=== PATIENT | male | born 1940 | race Caucasian/White ===

== ENCOUNTER 2017-08-07 06:01 | Inpatient (IN) | payer OTHER, BC ==
[2017-07-20 12:26] VITALS: Ht 182.9 cm; Wt 137.9 kg
--- NOTE | 2017-07-20 13:09 | PAT Medication Instructions ---
Service Date Jul 20, 2017. Current Home Medication List Acetaminophen (Tylenol), 1,000 MG PO BID Albuterol Hfa (Ventolin Hfa), 2-4 PUFFS INH Q6H PRN for SOB/Wheezing Albuterol Sulfate (Proair Respiclick), 2 PUFF INH BID PRN for SOB/Wheezing Allopurinol (Zyloprim), 100 MG PO QAM Amoxicillin (Amoxicillin), 4 CAP PO DAILY PRN for PRE DENTAL Amoxicillin & Pot Clavulanate (Amoxicillin/Clavulanate P), 1 TAB PO BID Aspirin (Aspirin Ec), 81 MG PO QPM Atorvastatin (Lipitor), 1 TAB PO HS Fluticasone Prop/Salmeterol (Advair Diskus 250/50 60 Dose), 2 PUFFS INH BID Fluticasone Propionate (Nasal) (Allergy Nasal [place] 24 Ho), 2 SPRAYS NA DAILY PRN for Nasal Congestion Glimepiride (Glimepiride), 1 TAB PO QAM Hydrocortisone (Hydrocortisone), 1 APPLN TOP DAILY PRN for Affected Skin Folds Icosapent Ethyl (Vascepa), 2 TAB PO BID Isosorbide Mononitrate Ext Rel (Imdur Ext Rel), 60 MG PO QAM Lorazepam (Ativan), 0.5 MG PO Q6H PRN for Anxiety and/or Sedation Metformin Hcl Er (Glucophage Er), 1 TAB PO QPM Metoclopramide (Reglan), 10 MG PO TID Metoprolol Succinate (Toprol Xl), 50 MG PO BID Mirabegron (Myrbetriq Er), 25 MG PO QAM Nitroglycerin (Nitrostat), 0.4 MG UT PRN PRN for chest PAIN Oxybutynin Chloride (Ditropan), 5 MG PO QAM Oxycodone/Acetaminophen 5MG/325MG (Percocet 5MG/325MG), 1 TABLET PO Q4H PRN for Pain Pantoprazole (Protonix), 40 MG PO QAM Sertraline (Zoloft), 50 MG PO QPM Sucralfate (Sucralfate), 1 GM PO QID Tamsulosin Hcl (Flomax), 0.4 MG PO QPM Warfarin Sod (Jantoven), 10 MG PO QAM Medication Instructions For Your Scheduled Surgery Amoxicillin (Amoxicillin), 4 CAP PO DAILY PRN for PRE DENTAL - Continue as directed: Aspirin (Aspirin Ec), 81 MG PO QPM Amoxicillin & Pot Clavulanate (Amoxicillin/Clavulanate P), 1 TAB PO BID - Check with surgeon and prescribing physician for instructions: Warfarin Sod (Jantoven), 10 MG PO QAM - Hold the following medications 2 weeks prior to surgery: Icosapent Ethyl (Vascepa), 2 TAB PO BID - Hold the following medications 24 hours prior to surgery: Hydrocortisone (Hydrocortisone), 1 APPLN TOP DAILY PRN for Affected Skin Folds - Hold the following medications 48 hours prior to surgery: Metformin Hcl Er (Glucophage Er), 1 TAB PO QPM - Hold the following medications the morning of surgery: Glimepiride (Glimepiride), 1 TAB PO QAM Metoclopramide (Reglan), 10 MG PO TID Mirabegron (Myrbetriq Er), 25 MG PO QAM Oxybutynin Chloride (Ditropan), 5 MG PO QAM Sucralfate (Sucralfate), 1 GM PO QID - Take the following medications the morning of surgery with a sip of water: Pantoprazole (Protonix), 40 MG PO QAM Oxycodone/Acetaminophen 5MG/325MG (Percocet 5MG/325MG), 1 TABLET PO Q4H PRN for Pain (okay to take up to 4 hours prior to surgery if needed) Nitroglycerin (Nitrostat), 0.4 MG UT PRN PRN for chest PAIN (if needed) Metoprolol Succinate (Toprol Xl), 50 MG PO BID Lorazepam (Ativan), 0.5 MG PO Q6H PRN for Anxiety and/or Sedation (if needed) Isosorbide Mononitrate Ext Rel (Imdur Ext Rel), 60 MG PO QAM Fluticasone Prop/Salmeterol (Advair Diskus 250/50 60 Dose), 2 PUFFS INH BID Fluticasone Propionate (Nasal) (Allergy Nasal [place] 24 Ho), 2 SPRAYS NA DAILY PRN for Nasal Congestion (if needed) Allopurinol (Zyloprim), 100 MG PO QAM Albuterol Hfa (Ventolin Hfa), 2-4 PUFFS INH Q6H PRN for SOB/Wheezing (if needed) Albuterol Sulfate (Proair Respiclick), 2 PUFF INH BID PRN for SOB/Wheezing ( if needed) Acetaminophen (Tylenol), 1,000 MG PO BID (okay to take up to 4 hours prior to surgery if needed) If you have any questions please call us at [phone] or [phone] or [phone]
[2017-07-20 14:24] LABS: BASO % 0.3 %; BASO ABS # 0.02 K/uL (0-0.2); EOS % 2.9 %; HEMATOCRIT 39.6 % (42-52); HEMOGLOBIN 13.5 g/dL (14.0-18.0); IG# 0.03 K/uL (0.00-0.02); LYMPH % 19.5 %; LYMPH ABS # 1.33 K/uL (1.2-3.4); MEAN CELL VOLUME 88.8 fL (80-100); MEAN CORPUSCULAR HEMOGLOBIN 30.3 pg (25-34); MEAN CORPUSCULAR HGB CONC 34.1 g/dl (32-36); MEAN PLATELET VOLUME 11.3 fL (7.4-10.4); MONO % 6.9 %; MONO ABS # 0.47 K/uL (0.11-0.59); NEUT ABS # 4.77 K/uL (1.4-6.5); PLATELET COUNT 164 K/uL (130-400); RED CELL DISTRIBUTION WIDTH CV 14.8 % (11.5-14.5); RED CELL DISTRIBUTION WIDTH SD 47.7 fL (36.4-46.3); WHITE BLOOD COUNT 6.82 K/uL (4.8-10.8)
[2017-07-20 14:32] LABS: CALCIUM 8.5 mg/dl (8.5-10.1); CREATININE 1.29 mg/dl (0.60-1.40); POTASSIUM 4.3 mmol/L (3.5-5.1)
[2017-08-07] VITALS (9 sets, daily range): BP systolic 103–167; BP diastolic 70–102; PULSE 70–98; TEMP 36.8–37.3; O2SAT 94–96
[~2017-08-07] VITALS: Ht 182.9 cm; Wt 137.9 kg
[~2017-08-07 06:01] MED LIST: ACET-1256 PO; ADVIN25/60 INH; ALBU18002 INH; ALLO100T PO; AMOX1TAB43 PO; AMX500 PO; ASPI81TA28 PO; ATOR-24 PO; CEFAZOLIN 3000MG IV PUSH 15 ML IV SCH; DTR/5 PO; FLUT50SP45; GLIM1TAB2 PO; HYDCR25 TOP; ICOS1CAP PO; ISOS60TA25 PO; LACTATED RINGER'S 1000ML 1,000 ML IV SCH; LORA-741 PO; METF500T5 PO; METO-157 PO; METO-217 PO; MIRA100T PO; NTRGSL/4 UT; OXYC-57 PO; PANT40TA PO; SERT50TA PO; SUCR1TAB PO; TAMS0.4C38 PO; VNTHFA/IN INH; WARF5TAB7 PO
[2017-08-07] MEDS ORDERED: FENTANYL CITRATE INJ 50 MCG/1 ML 2 ML VIAL ONE ×6 (06:38→10:59)
[2017-08-07] MEDS ORDERED: MIDAZOLAM HCL 1 MG/ML 2ML VIAL ONE (06:38)
[2017-08-07] MEDS ORDERED: ALBUMIN HUMAN 5% 12.5 GM/250 ML VIAL IV ONE ×2 (06:45→10:39)
[2017-08-07] MEDS ORDERED: BACITRACIN 50000 UNIT VIAL ONE (06:56)
[2017-08-07] MEDS ORDERED: BUPIVACAINE/EPINEPHRINE 0.5% MPF 1:200,000 30 ML VIAL ONE (06:56)
[2017-08-07] MEDS ORDERED: HYDROmorphone INJ 1 MG/ML SYR IV PRN (07:00)
[2017-08-07] MEDS ORDERED: EpHEDrine SULFATE INJ 50 MG/ML AMP IV PRN (07:00)
[2017-08-07] MEDS ORDERED: ONDANSETRON INJ 2 MG/ML 2 ML VIAL IV PRN (07:00)
[2017-08-07] MEDS ORDERED: FENTANYL CITRATE INJ 50 MCG/1 ML 2 ML VIAL IV PRN (07:00)
[2017-08-07] MEDS ORDERED: ATROPINE SULFATE 0.1 MG/ML 5ML SYR IV PRN (07:00)
[2017-08-07 07:18] LABS: PTT PATIENT 25.9 SECONDS (21.0-31.0)
--- NOTE | 2017-08-07 07:35 | History & Physical Bridge Note ---
H&P Re-Evaluation Bridge Note: I have examined the patient, reviewed the History & Physical and in the interval since the performance of the History & Physical I have noted the following changes of clinical significance: No changes noted
--- NOTE | 2017-08-07 07:37 | History and Physical ---
History & Physical Date Aug 07, 2017. Chief Complaint Back and leg pain History of Present Illness The patient is a 77 year old male with complaints of back and leg pain Additional History Hepatic Disease: No Endocrine Disorder: No Kidney Disease: No Hypertension: No Heart Disease: No Bleeding Tendencies: No Infectious Diseases: No Allergies Coded Allergies: Iodinated Diagnostic Agents (Verified Allergy, Intermediate, "CAT SCAN DYE ", 08/07/17) patient forgets - states was not in good shape after Lisinopril (Verified Allergy, Intermediate, patients states forgetd, ) Pregabalin (Verified Allergy, Intermediate, affected speech, 08/07/17) Home Medications Scheduled Acetaminophen (Tylenol), 1,000 MG PO BID Allopurinol (Zyloprim), 100 MG PO QAM Amoxicillin & Pot Clavulanate (Amoxicillin/Clavulanate P), 1 TAB PO BID Aspirin (Aspirin Ec), 81 MG PO QPM Atorvastatin (Lipitor), 1 TAB PO HS Fluticasone Prop/Salmeterol (Advair Diskus 250/50 60 Dose), 2 PUFFS INH BID Glimepiride (Glimepiride), 1 TAB PO QAM Icosapent Ethyl (Vascepa), 2 TAB PO BID Isosorbide Mononitrate Ext Rel (Imdur Ext Rel), 60 MG PO QAM Metformin Hcl Er (Glucophage Er), 1 TAB PO QPM Metoclopramide (Reglan), 10 MG PO TID Metoprolol Succinate (Toprol Xl), 50 MG PO BID Mirabegron (Myrbetriq Er), 25 MG PO QAM Oxybutynin Chloride (Ditropan), 5 MG PO QAM Pantoprazole (Protonix), 40 MG PO QAM Sertraline (Zoloft), 50 MG PO QPM Sucralfate (Sucralfate), 1 GM PO QID Tamsulosin Hcl (Flomax), 0.4 MG PO QPM Warfarin Sod (Jantoven), 10 MG PO QAM Scheduled PRN Albuterol Hfa (Ventolin Hfa), 2-4 PUFFS INH Q6H PRN for SOB/Wheezing Albuterol Sulfate (Proair Respiclick), 2 PUFF INH BID PRN for SOB/Wheezing Amoxicillin (Amoxicillin), 4 CAP PO DAILY PRN for PRE DENTAL Fluticasone Propionate (Nasal) (Allergy Nasal [place] 24 Ho), 2 SPRAYS NA DAILY PRN for Nasal Congestion Hydrocortisone (Hydrocortisone), 1 APPLN TOP DAILY PRN for Affected Skin Folds Lorazepam (Ativan), 0.5 MG PO Q6H PRN for Anxiety and/or Sedation Nitroglycerin (Nitrostat), 0.4 MG UT PRN PRN for chest PAIN Oxycodone/Acetaminophen 5MG/325MG (Percocet 5MG/325MG), 1 TABLET PO Q4H PRN for Pain Physical Examination Skin: warm/dry, no rash Eyes: normal inspection, EOMI, sclerae normal ENT: normal ENT inspection, pharynx normal Head: normocephalic, atraumatic Neck: supple, no adenopathy, trachea midline Respiratory/Chest: lungs clear, normal breath sounds, no respiratory distress Cardiovascular: regular rate, rhythm, no edema, no murmur Abdomen / GI: normal bowel sounds, non tender Back: normal inspection Extremities: normal inspection, normal range of motion Neurologic/Psych: no motor/sensory deficits, alert, normal reflexes, oriented x 3 Diagnosis Lumbar spinal stenosis Plan of Treatment L2 to S1 decompression L2 to pelvis fusion with iliac bolts
[2017-08-07] MEDS ORDERED: HYDROmorphone INJ 2 MG/ML SYR/VIAL ONE ×3 (08:10→11:13)
[2017-08-07] MEDS ORDERED: THROMBIN FOR SOLN 20000 UNIT KIT ONE (08:10)
[2017-08-07] MEDS ORDERED: PHENYLEPHRINE HCL INJ 10 MG/ML VIAL ONE (10:06)
[2017-08-07] MEDS ORDERED: DEXAMETHASONE SOD INJ 4 MG/ML VIAL ONE (10:06)
[2017-08-07] MEDS ORDERED: ONDANSETRON INJ 2 MG/ML 2 ML VIAL ONE (10:06)
[2017-08-07] MEDS ORDERED: LIDOCAINE HCL 2% 2 ML VIAL (20MG/ML) ONE (10:06)
[2017-08-07] MEDS ORDERED: PHENYLEPHRINE 100MCG/ML 5ML SYR ONE (10:06)
[2017-08-07] MEDS ORDERED: PROPOFOL IV EMULSION 10 MG/ML 20 ML VIAL IV ONE (10:06)
[2017-08-07] MEDS ORDERED: FLOSEAL HEMOSTATIC MATRIX 10ML TOP ONE (11:03)
--- NOTE | 2017-08-07 11:07 | [facility] Operative Report ---
Operative Report Operative Date Aug 07, 2017. Pre-Operative Diagnosis Lumbar spinal stenosis Post-Operative Diagnosis Lumbar spinal stenosis Procedure(s) Performed #1 lumbar decompression medial facetectomies foraminotomies L2 3 L3 4 L4 5 L5-S1. #2 posterior spinal fusion L2 3 L3 4 L4 5 and L5-S1. #3 bilateral SI joint effusions. #4 placement posterior segmental instrumentation L2 to S1 with bilateral iliac bolts. #5 interbody fusion L3 4. #6 placed a peek Cage 14 x 26 mm at L3 4. #7 placement of locally harvested morcellized autograft in the posterior lateral gutters. #8 placement she is going to sponge, master graft the posterior gutters and ostial amp and the bone graft the posterior gutters. Surgeon Dr. Oseas Lua [employer] Truck Driver Surgeon(s) Vernell Howe PA-C Estimated Blood Loss 825ml Findings Severe multilevel spinal stenosis with herniated nucleus pulposus L3 4 Specimens none per surgeon Description of Procedure Patient was met with preoperatively case discussed all questions addressed. After informed consent obtained patient was taken to the operative suite and underwent intubation and placed in a prone position on the Yoel table on top of the Juan frame. All bony prominences were well-padded eyes inspected to ensure no external pressure placed upon them. This point the lumbar spine was prepped and draped in the normal sterile fashion. Sharp dissection with the assistance of Bovie cautery was performed on to an exposing the lamina and transverse processes of L2-L3 L4-L5 and the bilateral sacral alar and SI joints. From a caudal to cephalad fashion complete laminectomy of L5 L4 L3 and L2 was performed addressing severe central lateral recess stenosis as well as disc herniation at L3 4 level. After complete decompression pedicle screws were placed in L2 L3 L4 L5-S1 as well as bilateral iliac bolts. The appropriate sized wilmer was contoured and locked into position. 2 transforaminal approach on the right complete laminectomy of L3 4 was performed which created to subcortical bleeding bone and a 14 x 26 mm peek cage filled with ostial bone graft In position. The rods were then locked in the final position. The transverse processes of L2-L3 L4-L5 and sacral alar and the bilateral SI joints were burred out to subcortical bleeding bone. Infuse collagen sponge master graft locally harvested morcellized autograft was placed. Cross-link locked into position. A 15 round GODFREY drain inserted. Incision was then closed with 1 Vicryl in the fascia 2-0 Vicryl subcutaneously 4-0 Monocryl for final skin closure Steri-Strips dressing was placed. Patient was taken to PACU in stable condition. Please note Vernell Dumont was present throughout the entire procedure involved in patient positioning complex portions of the surgery and final skin closure. I attest to the content of the Intraoperative Record and any orders documented therein. Any exceptions are noted below.
[2017-08-07] MEDS ORDERED: SODIUM CHLORIDE 0.9% 1000ML 1,000 ML IV SCH (11:08)
[2017-08-07] MEDS ORDERED: ROCURONIUM BROMIDE 10 MG/ML 5 ML VIAL IV ONE (11:09)
[2017-08-07] MEDS ORDERED: NEOSTIGMINE METHYLSULFATE 1 MG/ML 10ML VIAL ONE (11:13)
[2017-08-07] MEDS ORDERED: GLYCOPYRROLATE INJ 0.2 MG/ML VIAL ONE (11:13)
[2017-08-07] MEDS ORDERED: METOPROLOL TARTRATE 1 MG/ML VIAL ONE (11:13)
[2017-08-07] MEDS ORDERED: SOD PHOSPHATE/SOD BIPHOSPHATE ENEMA 132 ML BTL PR PRN (11:15)
[2017-08-07] MEDS ORDERED: DO NOT ADMINISTER FLU VACCINE PRN (11:15)
[2017-08-07] MEDS ORDERED: LORAZEPAM 0.5 MG TAB PO PRN (11:15)
[2017-08-07] MEDS ORDERED: FLUTICASONE PROPIONATE NA SPR 16 GM BTL PRN (11:15)
[2017-08-07] MEDS ORDERED: ALBUTEROL HFA 8 GM INHALER INH PRN (11:15)
[2017-08-07] MEDS ORDERED: hydrOXYzine HCL 25 MG TAB PO PRN (11:15)
[2017-08-07] MEDS ORDERED: FAMOTIDINE 20 MG TAB PO PRN (11:15)
[2017-08-07] MEDS ORDERED: METOCLOPRAMIDE HCL INJ 5 MG/ML 2 ML VIAL IV PRN (11:15)
[2017-08-07] MEDS ORDERED: DO NOT ADMINISTER PNEUMOCOCCAL VACCINE PRN (11:15)
[2017-08-07] MEDS ORDERED: ALUMINUM/MAGNESIUM SUSP 30 ML UDC PO PRN (11:15)
[2017-08-07] MEDS ORDERED: PROMETHAZINE HCL INJ 12.5 MG in SODIUM CHLORIDE 0.9% 50ML 50 ML IV PRN (11:15)
[2017-08-07] MEDS ORDERED: BISACODYL 10 MG SUPP PR PRN (11:15)
[2017-08-07] MEDS ORDERED: LORAZEPAM INJ 0.5 MG in SYRINGE 0 ML IV PRN (11:15)
[2017-08-07] MEDS ORDERED: MAGNESIUM HYDROXIDE SUSP 30 ML UDC PO PRN (11:15)
[2017-08-07] MEDS ORDERED: ACETAMINOPHEN IV 100 ML IV PRN (11:15)
[2017-08-07] MEDS ORDERED: CEFAZOLIN IV 3,000 MG in DEXTROSE 5% 50ML 50 ML IV SCH (11:15)
[2017-08-07] MEDS ORDERED: NALOXONE HCL 0.4 MG/1 ML VIAL/CARP IV PRN ×2 (11:15)
[2017-08-07] MEDS ORDERED: NITROGLYCERIN 0.4 MG SL PER TAB CHARGE UT PRN (11:15)
--- NOTE | 2017-08-07 11:17 | DIAGNOSTIC IMAGING REPORT ---
INTRAOPERATIVE RADIOGRAPHS CLINICAL HISTORY: L2-S1 spinal fusion with iliac bolts. Fluoroscopy time: 49 seconds. FINDINGS: 5 spot fluoroscopic views of the lumbar spine are obtained. There has been discectomy at L3-L4 with laminectomy and posterior fusion from L2 -S1. Iliac bolts are in place. Interpedicular screws are present at all levels. The orthopedic hardware appears intact. IMPRESSION: Intraoperative images from L2 -S1 spinal fusion as above. Electronically signed by: Ruben Ortega M.D. 08/07/2017 11:16 AM Dictated Date/Time: 08/07/2017 11:15 AM
[2017-08-07] MEDS ORDERED: HYDROmorphone HCL 0.5MG/ML 50 ML CASSETTE ONE (11:25)
[2017-08-07 11:37] LABS: HEMATOCRIT 33.9 % (42-52); HEMOGLOBIN 11.1 g/dL (14.0-18.0)
--- NOTE | 2017-08-07 12:09 | Anesthesiology Progress Note ---
Anesthesia Post Op Note Date & Time Aug 07, 2017 at 12:08 Vital Signs Pain Intensity: 0 Vital Signs Past 12 Hours Date Time Temp Pulse Resp B/P (MAP) Pulse Ox O2 Delivery O2 Flow Rate FiO2 08/07/17 12:05 36.4 81 25 157/88 95 Nasal Cannula 4 08/07/17 11:55 86 27 160/97 96 Nasal Cannula 4 08/07/17 11:45 86 26 175/101 98 Oxymask 10 08/07/17 11:35 93 23 183/110 98 Oxymask 10 08/07/17 11:29 36.6 70 16 169/99 98 Oxymask 10 08/07/17 06:34 37 98 20 167/97 94 Room Air Notes Mental Status: alert / awake / arousable, participated in evaluation Pt Amnestic to Procedure: Yes Nausea / Vomiting: adequately controlled Pain: adequately controlled Airway Patency, RR, SpO2: stable & adequate BP & HR: stable & adequate Hydration State: stable & adequate Anesthetic Complications: no major complications apparent Patient is able to move b/l lower extremities.
[2017-08-07] MEDS: HYDROmorphone HCL 0.5MG/ML 50 ML CASSETTE IV PRN ×3 (12:23→23:07)
[2017-08-07] MEDS: ONDANSETRON INJ 2 MG/ML 2 ML VIAL IV PRN (12:59)
[2017-08-07] MEDS ORDERED: GLUCOSE 40% GEL 15 GM TUBE PO PRN (13:15)
[2017-08-07] MEDS ORDERED: DEXTROSE 50% 50 ML SYR IV PRN (13:15)
[2017-08-07] MEDS ORDERED: GLUCAGON FOR INJ 1 MG VIAL SQ PRN (13:15)
[2017-08-07] MEDS ORDERED: GLUCOSE 10 TABS/TUBE PO PRN (13:15)
[2017-08-07] MEDS: SUCRALFATE 1 GM TAB PO SCH ×3 (14:29→21:29)
[2017-08-07] MEDS: METOCLOPRAMIDE HCL 10 MG TAB PO SCH ×2 (14:29→21:30)
[2017-08-07] MEDS: SODIUM CHLORIDE 0.9% 1000ML 1,000 ML IV SCH ×2 (14:30→21:27)
[2017-08-07] MEDS ORDERED: NURSING VERBAL MED ORDER ONE (15:30)
--- NOTE | 2017-08-07 15:42 | Medical Consult ---
Consultation Date of Consultation: Aug 07, 2017. Attending Physician: Oseas Lua D.O. Reason for Consultation: Post op medical management History of Present Illness This is a 77yo M with a PMH of CAD (s/p CABG x 3 in 2009), chronic diastolic HF , mild COPD, HTN, chronic A Fib (on coumadin), DM II, HLD, depression, lumbar radiculopathy and other medical problems listed below who is POD #0 s/p decompression fusion of L2-S1 by Dr. Lua. Doing well post-operatively Endorses 2/10 lower back pain at surgical site. Denies fever, chills, lightheadedness, confusion, headache, chest pain, palpitations, abd pain, nausea , vomiting, dysuria or LE swelling. Has a history of CAD s/p CABG in 2009. Takes aspirin daily but stopped 5 days pre-operatively. Also has h/o chronic A Fib for which he is on coumadin. Stopped 5 days ago pre-operatively. DM II is well controlled on metformin and glimepiride. Hgb a1c of 6.1 in Apr 2017. Past Medical/Surgical History Medical Problems: (1) Aortic valve stenosis Status: Chronic (2) BPH (benign prostatic hyperplasia) Status: Chronic (3) CAD (coronary artery disease) Permanent Comment: S/p CABG x 3 in 2009 Status: Chronic (4) Chronic atrial fibrillation Status: Chronic (5) CKD (chronic kidney disease), stage III Status: Chronic (6) COPD, mild Status: Chronic (7) Depression Status: Chronic (8) DM II (diabetes mellitus, type II), controlled Status: Chronic (9) HLD (hyperlipidemia) Status: Chronic (10) HTN (hypertension) Status: Chronic (11) Lumbar stenosis with neurogenic claudication Status: Chronic (12) ALYSSIA on CPAP Status: Chronic Family History FH: heart disease FH: thyroid disease Kidney disease Seizures Social History Smoking Status: Former Smoker Alcohol Use: none Marital Status: Housing Status: lives with significant other Occupation Status: retired Allergies Coded Allergies: Iodinated Diagnostic Agents (Verified Allergy, Intermediate, "CAT SCAN DYE ", 08/07/17) patient forgets - states was not in good shape after Lisinopril (Verified Allergy, Intermediate, patients states forgetd, ) Pregabalin (Verified Allergy, Intermediate, affected speech, 08/07/17) Home Medications Reported Home Medications Medications Dose Route/Sig Max Daily Dose Days Date Category Dose Instructions Ventolin Hfa (Albuterol) 200 Puffs/68437 Mcg Aers 2-4 Puffs INH Q6H PRN 07/20/17 Reported Glimepiride 1 Mg Tab 1 Tab PO QAM 30 07/20/17 Reported Imdur Ext Rel (Isosorbide Mononitrate) 60 Mg Ertab 60 Mg PO QAM 07/20/17 Reported Lipitor (Atorvastatin Calcium) 40 Mg Tab 1 Tab PO HS 90 07/20/17 Reported Percocet 5MG/325MG (Oxycodone/Acetaminophen) Tab 1 Tablet PO Q4H PRN 07/20/17 Reported PAIN Ativan (Lorazepam) 0.5 Mg Tab 0.5 Mg PO Q6H PRN 07/20/17 Reported Vascepa (Icosapent Ethyl) 1 Gm Cap 2 Tab PO BID 07/20/17 Reported Amoxicillin/Clavulanate P (Amoxicillin & Pot Clavulanate) 1 Tab Tab 1 Tab PO BID 10 07/20/17 Reported Glucophage Er (Metformin HCl) 500 Mg Tab 1 Tab PO QPM 90 07/20/17 Reported Tylenol (Acetaminophen) 500 Mg Tab 1,000 Mg PO BID 07/20/17 Reported Reglan (Metoclopramide HCl) 10 Mg Tab 10 Mg PO TID 07/20/17 Reported NAUSEA Advair Diskus 250/50 60 Dose (Fluticasone Prop/Salmeterol) 1 Ea Aerp 2 Puffs INH BID 90 07/20/17 Reported Jantoven (Warfarin Sodium) 5 Mg Tab 10 Mg PO QAM 07/20/17 Reported Toprol Xl (Metoprolol Succinate) 50 Mg Tabcr 50 Mg PO BID 07/20/17 Reported Flomax (Tamsulosin Hcl) 0.4 Mg Cap 0.4 Mg PO QPM 07/20/17 Reported Myrbetriq Er (Mirabegron) 25 Mg Tab 25 Mg PO QAM 07/20/17 Reported Amoxicillin 500 Mg Cap 4 Cap PO DAILY PRN 07/20/17 Reported Protonix (Pantoprazole Sodium) 40 Mg Tab 40 Mg PO QAM 07/20/17 Reported Allergy Nasal Minetto 24 Ho (Fluticasone Propionate (Nasal)) 50 Mcg/Act Spr 2 Sprays NA DAILY PRN 07/20/17 Reported Ditropan (Oxybutynin Chloride) 5 Mg Tab 5 Mg PO QAM 07/20/17 Reported Nitrostat (Nitroglycerin) 0.4 Mg Tab 0.4 Mg UT PRN PRN 07/20/17 Reported Sucralfate 1 Gm Tab 1 Gm PO QID 07/20/17 Reported Zoloft (Sertraline HCl) 50 Mg Tab 50 Mg PO QPM 07/20/17 Reported Zyloprim (Allopurinol) 100 Mg Tab 100 Mg PO QAM 07/20/17 Reported Aspirin Ec (Aspirin) 81 Mg Tab 81 Mg PO QPM 07/20/17 Reported Proair Respiclick (Albuterol Sulfate) 108 Mcg/Act Aer 2 Puff INH BID PRN 07/20/17 Reported Hydrocortisone 90 Appln/30 Gm Cr 1 Appln TOP DAILY PRN 7 07/20/17 Reported Current Inpatient Medications Current Inpatient Medications Medications (Trade) Dose Ordered Sig/Jonathan Route Start Time Stop Time Status Last Admin Dose Admin Lactated Ringer's 1,000 ml @ 15 mls/hr Q24H IV 08/07/17 06:00 08/08/17 05:59 Cefazolin Sodium 15 ml @ 1.667 mls/ min PREOP IV 08/07/17 06:00 08/07/17 18:00 08/07/17 07:41 1.667 MLS/MIN Ondansetron HCl (Zofran Inj) 4 mg ONE PRN IV 08/07/17 07:00 Promethazine HCl 12.5 mg/Sodium Chloride 50.5 ml @ 202 mls/hr Q6H PRN IV 08/07/17 11:15 09/06/17 11:14 Ondansetron HCl (Zofran Inj) 4 mg Q6H PRN IV 08/07/17 11:15 09/06/17 11:14 08/07/17 12:59 4 MG Metoclopramide HCl (Reglan Inj) 10 mg Q6H PRN IV 08/07/17 11:15 09/06/17 11:14 Lorazepam (Ativan Tab) 0.5 mg Q8H PRN PO 08/07/17 11:15 09/06/17 11:14 Lorazepam 0.5 mg/ Syringe 0.25 ml @ 1 mls/min Q8H PRN IV 08/07/17 11:15 09/06/17 11:14 Pneumococcal Polysaccharide Vaccine 1 ea PRN PRN N/A 08/07/17 11:15 09/06/17 11:14 Influenza Virus Vacc Triv Types A&B 1 ea PRN PRN N/A 08/07/17 11:15 09/06/17 11:14 Polyethylene (Miralax Powder Packet) 17 gm Q6 PO 08/09/17 06:00 09/08/17 05:59 Bisacodyl (Dulcolax Supp) 10 mg DAILY PRN PA 08/07/17 11:15 09/06/17 11:14 Magnesium Hydroxide (Milk Of Magnesia Susp) 30 ml DAILY PRN PO 08/07/17 11:15 09/06/17 11:14 Hydromorphone HCl (Dilaudid Inj) 0.5-1mg prn moder... Q3H PRN IV 08/08/17 06:01 08/22/17 06:00 Oxycodone HCl (Roxicodone Immediate Rel Tab) 5-10mg prn moderate to sev... Q4H PRN PO 08/08/17 06:00 08/22/17 05:59 Sodium Chloride 1,000 ml @ 150 mls/hr Q6H40M IV 08/07/17 11:08 09/06/17 11:07 08/07/17 14:30 150 MLS/HR Acetaminophen (Tylenol Tab) 1,000 mg Q8H PRN PO 08/07/17 11:15 09/06/17 11:14 Acetaminophen 100 ml @ 400 mls/hr Q8H PRN IV 08/07/17 11:15 09/06/17 11:14 Naloxone HCl (Narcan Inj) 0.1 mg Q5M PRN IV 08/07/17 11:15 09/06/17 11:14 Senna/Docusate Sodium (Senokot S Tab) 2 tab HS PO 08/07/17 21:00 09/06/17 20:59 Sodium Biphosphate/ Sodium Phosphate (Fleet Enema) 132 ml ONE PRN PA 08/07/17 11:15 09/06/17 11:14 Hydroxyzine HCl (Vistaril Tab) 25 mg Q8H PRN PO 08/07/17 11:15 09/06/17 11:14 Al Hydroxide/Mg Hydroxide (Maalox Susp) 30 ml Q6H PRN PO 08/07/17 11:15 09/06/17 11:14 Famotidine (Pepcid Tab) 20 mg Q12 PRN PO 08/07/17 11:15 09/06/17 11:14 Diphenhydramine HCl (Benadryl Cap) 25 mg Q6H PRN PO 08/07/17 11:15 09/06/17 11:14 Miscellaneous Information (Discontinue SOLDERER TORCH) 1 ea ONE ONCE N/A 08/08/17 06:00 08/08/17 06:01 Naloxone HCl (Narcan Inj) 0.1 mg Q5M PRN IV 08/07/17 11:15 08/08/17 06:00 Hydromorphone HCl (Dilaudid Automobile Leasing Supervisor) 25 mg PRN PRN IV 08/07/17 11:15 08/08/17 06:00 08/07/17 15:11 25 MG Sodium Chloride 1,000 ml @ 15 mls/hr Q24H IV 08/07/17 11:08 08/08/17 06:00 Albuterol (Ventolin Hfa Inhaler) 2 puffs Q6H PRN INH 08/07/17 11:15 09/06/17 11:14 Allopurinol (Zyloprim Tab) 100 mg QAM PO 08/08/17 09:00 09/07/17 08:59 Aspirin (Ecotrin Tab) 81 mg QPM PO 08/07/17 21:00 09/06/17 20:59 Atorvastatin Calcium (Lipitor Tab) 40 mg HS PO 08/07/17 21:00 09/06/17 20:59 Salmeterol Xinafoate/ Fluticasone (Advair Diskus 250/50 Inh) 1 puff BID INH 08/07/17 21:00 09/06/17 20:59 Fluticasone Propionate (Flonase Nasal Minetto) 2 sprays DAILY PRN NA 08/07/17 11:15 09/06/17 11:14 Metoclopramide HCl (Reglan Tab) 10 mg TID PO 08/07/17 14:00 09/06/17 13:59 08/07/17 14:29 10 MG Metoprolol Succinate (Toprol Xl Tab) 50 mg BID PO 08/07/17 21:00 09/06/17 20:59 Mirabegron (Myrbetriq Er) 25 mg QAM PO 08/08/17 09:00 09/07/17 08:59 Nitroglycerin (Nitrostat Tab) 0.4 mg PRN PRN UT 08/07/17 11:15 09/06/17 11:14 Oxybutynin Chloride (Ditropan Tab) 5 mg QAM PO 08/08/17 09:00 09/07/17 08:59 Pantoprazole Sodium (Protonix Tab) 40 mg QAM PO 08/08/17 09:00 09/07/17 08:59 Sertraline HCl (Zoloft Tab) 50 mg QPM PO 08/07/17 21:00 09/06/17 20:59 Sucralfate (Carafate Tab) 1 gm QID PO 08/07/17 13:00 09/06/17 12:59 08/07/17 14:29 1 GM Tamsulosin HCl (Flomax Cap) 0.4 mg QPM PO 08/07/17 21:00 09/06/17 20:59 Insulin Aspart (novoLOG ASPART) SLIDING SCALE If C... ACHS SC 08/07/17 17:15 09/06/17 17:14 Glucose (Glucose 40% Gel) 15-30 GRAMS 15 GRAMS... UD PRN PO 08/07/17 13:15 09/06/17 13:14 Glucose (Glucose Chew Tab) 4-8 Tablets 4 Tabl... UD PRN PO 08/07/17 13:15 09/06/17 13:14 Dextrose (Dextrose 50% 50ML Syringe) 25-50ML OF 50% DW IV FOR... UD PRN IV 08/07/17 13:15 09/06/17 13:14 Glucagon (Glucagon Inj) 1 mg UD PRN SQ 08/07/17 13:15 09/06/17 13:14 Cefazolin Sodium 3000 mg/Syringe 22.5 ml @ 4.5 mls/min Q8H IV 08/07/17 16:00 08/08/17 00:04 Isosorbide Mononitrate (Imdur Ext Rel Tab) 60 mg QAM PO 08/07/17 15:15 09/07/17 08:59 Review of Systems Ten systems reviewed and negative except as noted in the HPI. Physical Exam Date Time Temp Pulse Resp B/P (MAP) Pulse Ox O2 Delivery O2 Flow Rate FiO2 08/07/17 15:39 37.2 70 14 134/84 (101) 96 Nasal Cannula 3.0 08/07/17 14:47 84 16 165/102 (123) 96 08/07/17 13:30 83 16 118/87 (97) 95 08/07/17 12:30 96 Nasal Cannula 3.0 08/07/17 12:30 Nasal Cannula 3.0 08/07/17 12:25 36.8 79 16 137/98 (111) 96 Nasal Cannula 4.0 08/07/17 12:15 84 26 146/90 95 Nasal Cannula 4 08/07/17 12:05 36.4 81 25 157/88 95 Nasal Cannula 4 08/07/17 11:55 86 27 160/97 96 Nasal Cannula 4 08/07/17 11:45 86 26 175/101 98 Oxymask 10 08/07/17 11:35 93 23 183/110 98 Oxymask 10 08/07/17 11:29 36.6 70 16 169/99 98 Oxymask 10 08/07/17 06:34 37 98 20 167/97 94 Room Air General Appearance: no apparent distress, + pertinent finding (Resting comfortably. ) Head: normocephalic, atraumatic Eyes: normal inspection, PERRL, sclerae normal ENT: normal ENT inspection, hearing grossly normal, pharynx normal (moist mucous membranes ) Neck: supple, thyroid normal, trachea midline Respiratory/Chest: chest non-tender, lungs clear, normal breath sounds, no respiratory distress, no accessory muscle use Cardiovascular: regular rate, rhythm, normal peripheral pulses, + systolic murmur (3/6 systolic murmur heard best at LUSB ) Abdomen/GI: normal bowel sounds, non tender, soft Back: + pertinent finding (Dressing clean, dry, intact ) Extremities/Musculoskelatal: normal inspection, no calf tenderness, no pedal edema, + pertinent finding (SCDs in place) Neurologic/Psych: no motor/sensory deficits, alert, normal mood/affect, oriented x 3 Skin: normal color, warm/dry Laboratory Results 07/20/17 13:15 Red Blood Count 4.46, Mean Corpuscular Volume 88.8, Mean Corpuscular Hemoglobin 30.3, Mean Corpuscular Hemoglobin Concent 34.1, Mean Platelet Volume 11.3, Neutrophils (%) (Auto) 70.0, Lymphocytes (%) (Auto) 19.5, Monocytes (%) (Auto) 6.9, Eosinophils (%) (Auto) 2.9, Basophils (%) (Auto) 0.3, Neutrophils # (Auto) 4.77, Lymphocytes # (Auto) 1.33, Monocytes # (Auto) 0.47, Eosinophils # (Auto) 0.20, Basophils # (Auto) 0.02 08/07/17 10:52 07/20/17 13:15 Test 07/20/17 00:00 07/20/17 13:15 08/07/17 06:21 08/07/17 20:56 Urine Color YELLOW Urine Appearance CLEAR (CLEAR) Urine pH 5.0 (4.5-7.5) Urine Specific [place] 1.025 (1.000-1.030) Urine Protein NEG (NEG) Urine Glucose (UA) NEG (NEG) Urine Ketones TRACE (NEG) Urine Occult Blood NEG (NEG) Urine Nitrite NEG (NEG) Urine Bilirubin NEG (NEG) Urine Urobilinogen NEG (NEG) Urine Leukocyte Esterase NEG (NEG) White Blood Count 6.82 K/uL (4.8-10.8) Red Blood Count 4.46 M/uL (4.7-6.1) Hemoglobin 13.5 g/dL (14.0-18.0) Hematocrit 39.6 % (42-52) Mean Corpuscular Volume 88.8 fL (80-100) Mean Corpuscular Hemoglobin 30.3 pg (25-34) Mean Corpuscular Hemoglobin Concent 34.1 g/dl (32-36) Platelet Count 164 K/uL (130-400) Mean Platelet Volume 11.3 fL (7.4-10.4) Neutrophils (%) (Auto) 70.0 % Lymphocytes (%) (Auto) 19.5 % Monocytes (%) (Auto) 6.9 % Eosinophils (%) (Auto) 2.9 % Basophils (%) (Auto) 0.3 % Neutrophils # (Auto) 4.77 K/uL (1.4-6.5) Lymphocytes # (Auto) 1.33 K/uL (1.2-3.4) Monocytes # (Auto) 0.47 K/uL (0.11-0.59) Eosinophils # (Auto) 0.20 K/uL (0-0.5) Basophils # (Auto) 0.02 K/uL (0-0.2) RDW Standard Deviation 47.7 fL (36.4-46.3) RDW Coefficient of Variation 14.8 % (11.5-14.5) Immature Granulocyte % (Auto) 0.4 % Immature Granulocyte # (Auto) 0.03 K/uL (0.00-0.02) Anion Gap 6.0 mmol/L (3-11) Est Creatinine Clear Calc Drug Dose 65.1 ml/min Estimated GFR () 60.7 Estimated GFR (Non- 52.4 BUN/Creatinine Ratio 13.1 (10-20) Calcium Level 8.5 mg/dl (8.5-10.1) Prothrombin Time 10.6 SECONDS (9.0-12.0) Prothromb Time International Ratio 1.0 (0.9-1.1) Activated Partial Thromboplast Time 25.9 SECONDS (21.0-31.0) Partial Thromboplastin Ratio 1.0 Bedside Glucose 150 mg/dl (70-99) Last 24 Hours Test 08/07/17 06:21 08/07/17 06:24 08/07/17 10:52 08/07/17 11:31 Prothrombin Time 10.6 SECONDS Prothromb Time International Ratio 1.0 Activated Partial Thromboplast Time 25.9 SECONDS Partial Thromboplastin Ratio 1.0 Bedside Glucose 145 mg/dl 187 mg/dl Hemoglobin 11.1 g/dL Hematocrit 33.9 % Test 08/07/17 12:29 Bedside Glucose 206 mg/dl Assessment & Plan 1. s/p lumbar surgery -POD 0; surgery performed by Dr. Lua -post-operative pain present-currently requiring narcotics (dilaudid SOLDERER TORCH)- reviewed pain plan with nurse. -monitor for acute blood loss with daily H&H -pt encouraged to utilize spirometry to prevent post-op infection -PT/OT -activity and wound care orders per ortho protocol -will continue to follow while patient is hospitalized 2. CAD s/p CABG: cont medical management with ASA, statin and BB 3. Chronic diastolic heart failure-compensated. 4. COPD-stable, no wheezing or shortness of breath 5. HTN-controlled. Cont Toprol post-operative with hold parameters. Cont good pain management. 6. DMII-Insulin sliding scale with cab coverage for now and monitor blood glucose qACHS 7. Chronic afib-stable, cont rate control with BB and coumadin has been held. Will be restarted per Dr. Lua in post-op setting. DVT Prophylaxis -per ortho protocol Code Status -full code Dispo -per ortho. Thank you for this consultation. We will follow the patient with you during their hospital stay. You can reach a member of the [facility] Hospitalist Team 30/01 via pager @ . Gisela Cordon, [place] [employer] Hospitalist
[2017-08-07] MEDS: ISOSORBIDE MONONITRATE 60 MG TABCR PO SCH (18:22)
[2017-08-07] MEDS: CEFAZOLIN IV 3,000 MG in SYRINGE 7.5 ML IV SCH ×2 (18:22→23:45)
[2017-08-07] MEDS: INSULIN ASPART 100 UNITS/ML 3 ML PEN SC SCH ×2 (18:27→21:00)
[2017-08-07] MEDS: FLUTICASONE/SALMETEROL 250/50 (ADVAIR) 14 PUFF/1 INHALER INH SCH (21:28)
[2017-08-07] MEDS: TAMSULOSIN HCL 0.4 MG CAP PO SCH (21:28)
[2017-08-07] MEDS: ATORVASTATIN 40 MG TAB PO SCH (21:28)
[2017-08-07] MEDS: SERTRALINE HCL 50 MG TAB PO SCH (21:29)
[2017-08-07] MEDS: ASPIRIN 81 MG ECTAB PO SCH (21:29)
[2017-08-07] MEDS: DOCUSATE SODIUM/SENNA 50/8.6MG TAB PO SCH (21:30)
[2017-08-07] MEDS: METOPROLOL SUCC 50MG EXT REL TAB PO SCH (21:34)
--- NOTE | 2017-08-07 21:51 | Discharge Instructions ---
Discharge Instructions Date of Service Aug 07, 2017. Admission Reason for Admission: Lumbar Spinal Stenosis L2-S1 Discharge Discharge Diagnosis / Problem: lumbar stenosis Discharge Goals Goal(s): Improve function Activity Recommendations Activity Limitations: per Instructions/Follow-up section . Instructions / Follow-Up Instructions / Follow-Up ACTIVITY RECOMMENDATIONS: SELF CARE INSTRUCTIONS AFTER THORACIC/LUMBAR FUSIONS 1. You may walk to your tolerance. It is good exercise for your legs and back. Expect some back and intermittent leg aches and pains. 2. You may perform "counter-top" level activities (make a sandwich, corwin with a project, etc.). 3. No bending or lifting of more than 10 pounds or back twisting of any nature (roll like a log when turning in bed). 4. You may ride in a car for 20-30 minutes at a time. No driving until after your first visit with your doctor. 5. Frequent changes of position and restricting sitting to 30 minutes at a time will help limit the amount of back spasms and stiffness you may experience. 6. You may discontinue the use of ambulatory aids (cane, crutches, etc.) once your strength and confidence allow. 7. You may senior information security engineer the shower and let water strike your incision when you arrive home at least once daily. Do not take a tub bath, sit in a hot tub or go into a swimming pool until after your first recheck in the office. SPECIAL CARE INSTRUCTIONS: VERY IMPORTANT TO READ AND REVIEW A. Your surgical incision has been closed with a cosmetic suture under the skin that will dissolve in about 6 weeks. In 14 days, you can use a pair of clean scissors and cut the suture that is left outside of the skin at the ends of your incision. 1. The small skin tapes can be removed 7 days after surgery if they have not fallen off by that point. 2. You may keep the wound open to air as much as possible to promote healing after post-op day number 5 unless told otherwise by your doctor. 3. If you think the wound looks like it is becoming infected (redness or worsening drainage) and/or you are experiencing fever, chill or worsening back pain and muscle spasms, contact the office so that we may evaluate you as soon as possible. B. Complications are uncommon, but please contact us if you have any signs or symptoms of: 1. wound infection (fever higher than 102.5 degrees F, redness, separation of wound, drainage, or increasing pain from the incision) 2. blood clots in legs (pain, swelling, redness and warmth in legs) 3. urinary tract infection (fever higher than 102.5 degrees F, burning upon urination or increased frequency of urination) 4. nerve problems (inability to walk on your toes or heels, numbness, loss of bowel or bladder control) 5. any other symptoms that concern you C. Please call the office at if you have any concerns or questions about your operation or recovery. D. No smoking! Smoking drastically decreases the chance of a solid fusion. E. Do not take any anti-inflammatory medications (Indocin, Advil, Motrin, Aspirin, Naprosyn, etc.) as these may inhibit the chance of a solid fusion. Tylenol is okay to take for pain. MANAGING PAIN AFTER SPINAL SURGERY 1. Narcotic medication is intended for short-term use and will be provided for surgical pain. Surgical pain usually lasts for a period of 4-6 weeks. Narcotic medication includes Percocet, Vicodin, Darvocet, Tylenol #3 or Lortab. 2. Longer-term pain is more appropriately treated with non-narcotic medication such as Tylenol ES. 3. Muscle spasm is not appropriately treated with narcotics. Muscle relaxers such as Soma, Flexeril or Skelaxin can be used along with Tylenol ES. 4. Remember that we all live with some "aches and pains". This is not unusual or uncommon after an injury or as we get older. a. Back pain is expected and may include muscle spasms for 4 to 6 weeks after surgery. The pain should gradually improve. If the pain worsens for no apparent reason, please contact the office. b. Intermittent leg pain may also be experienced and should not be concerned about unless it worsens for no apparent reason. If so, please contact the office. 5. We will provide appropriate medication within the normal guidelines of their prescribed use. We will also be very cautious and aware of potential abuse and extended duration of patients' medication needs. a. Pain medications are for your comfort and to assist with sleep and rest so that the tissue can heal. They are not provided in order to return to normal activity and should not be used through the day. To do so or worsening pain at night can result from ongoing tissue damage and development of tolerance to the prescribed medicine. 6. Please allow 2-3 days to process refills. Prescriptions will not be mailed but must be picked up at the office. FOLLOW UP VISIT: Keep your scheduled follow-up appointment. Any questions, please call the office at . Current Hospital Diet Patient's current hospital diet: Diabetes Type 2 Diet Discharge Diet Recommended Diet: Regular Diet Procedures Procedures Performed: #1 lumbar decompression medial facetectomies foraminotomies L2 3 L3 4 L4 5 L5-S1. #2 posterior spinal fusion L2 3 L3 4 L4 5 and L5-S1. #3 bilateral SI joint effusions. #4 placement posterior segmental instrumentation L2 to S1 with bilateral iliac bolts. #5 interbody fusion L3 4. #6 placed a peek Cage 14 x 26 mm at L3 4. #7 placement of locally harvested morcellized autograft in the posterior lateral gutters. #8 placement she is going to sponge, master graft the posterior gutters and ostial amp and the bone graft the posterior gutters. Pending Studies Studies pending at discharge: no Medical Emergencies . Who to Call and When: Medical Emergencies: If at any time you feel your situation is an emergency, please call 911 immediately. . Non-Emergent Contact Non-Emergency issues call your: Primary Care Provider . "Provider Documentation" section prepared by Oseas Lua. . VTE Core Measure Inpt VTE Proph given/why not?: Eugenie Mooney, PAULINE's
[2017-08-07] MEDS ORDERED: RXC5 PO (21:52)
[2017-08-08] VITALS (8 sets, daily range): BP systolic 102–119; BP diastolic 65–79; PULSE 88–111; TEMP 37.2–38.1; O2SAT 79–97
[2017-08-08] MEDS: SODIUM CHLORIDE 0.9% 1000ML 1,000 ML IV SCH ×2 (03:47→10:20)
[2017-08-08] MEDS ORDERED: DC PCA ONE (06:00)
[2017-08-08] MEDS ORDERED: HYDROmorphone INJ 0.5 MG/0.5 ML SYR IV PRN (06:01)
[2017-08-08] MEDS: ONDANSETRON INJ 2 MG/ML 2 ML VIAL IV PRN (06:04)
[2017-08-08 06:33] LABS: BASO % 0.1 %; BASO ABS # 0.01 K/uL (0-0.2); HEMATOCRIT 30.4 % (42-52); HEMOGLOBIN 10.3 g/dL (14.0-18.0); IG# 0.06 K/uL (0.00-0.02); LYMPH % 10.4 %; LYMPH ABS # 1.06 K/uL (1.2-3.4); MEAN CELL VOLUME 90.7 fL (80-100); MEAN CORPUSCULAR HEMOGLOBIN 30.7 pg (25-34); MEAN CORPUSCULAR HGB CONC 33.9 g/dl (32-36); MEAN PLATELET VOLUME 11.2 fL (7.4-10.4); MONO % 6.6 %; MONO ABS # 0.67 K/uL (0.11-0.59); NEUT % 82.3 %; NEUT ABS # 8.38 K/uL (1.4-6.5); PLATELET COUNT 128 K/uL (130-400); RED CELL DISTRIBUTION WIDTH CV 14.8 % (11.5-14.5); RED CELL DISTRIBUTION WIDTH SD 48.5 fL (36.4-46.3); WHITE BLOOD COUNT 10.18 K/uL (4.8-10.8)
[2017-08-08 06:55] LABS: HEMOGLOBIN A1C 6.1 % (4.5-5.6)
[2017-08-08 07:06] LABS: CALCIUM 8.2 mg/dl (8.5-10.1); CREATININE 1.37 mg/dl (0.60-1.40); POTASSIUM 4.3 mmol/L (3.5-5.1)
[2017-08-08] MEDS: OXYCODONE HCL IR 5 MG TAB (IMMEDIATE RELEASE) PO PRN ×2 (07:17→16:37)
[2017-08-08] MEDS: FLUTICASONE/SALMETEROL 250/50 (ADVAIR) 14 PUFF/1 INHALER INH SCH ×2 (08:45→21:06)
[2017-08-08] MEDS: ACETAMINOPHEN 500 MG TAB PO PRN (08:46)
[2017-08-08] MEDS: METOPROLOL SUCC 50MG EXT REL TAB PO SCH ×2 (08:46→21:06)
[2017-08-08] MEDS: ALLOPURINOL 100 MG TAB PO SCH (08:47)
[2017-08-08] MEDS: ISOSORBIDE MONONITRATE 60 MG TABCR PO SCH (08:47)
[2017-08-08] MEDS: OXYBUTYNIN CHLORIDE 5 MG TAB PO SCH (08:47)
[2017-08-08] MEDS: MIRABEGRON ER 25 MG TAB PO SCH (08:47)
[2017-08-08] MEDS: SUCRALFATE 1 GM TAB PO SCH ×4 (08:47→21:06)
[2017-08-08] MEDS: PANTOprazole SOD 40 MG TAB PO SCH (08:48)
[2017-08-08] MEDS: METOCLOPRAMIDE HCL 10 MG TAB PO SCH ×3 (08:48→21:06)
[2017-08-08] MEDS: INSULIN ASPART 100 UNITS/ML 3 ML PEN SC SCH ×4 (08:54→21:11)
[2017-08-08] MEDS ORDERED: ISOSORBIDE MONONITRATE 60 MG TABCR PO SCH (09:00)
--- NOTE | 2017-08-08 10:06 | Progress Note ---
Medicine Progress Note Date & Time of Visit: Aug 08, 2017 at 10:03\ . Subjective CC: Follow-up visit for multiple medical problems. HPI: No chest pain or SOB. Occasional cough. Nauseated. No emesis. Not passing any flatus or stool yet. Still has Gonzales cath. Having postoperative pain. ROS: General- no fever, no chills Resp- as noted above in HPI Cardiac- as noted above in HPI GI- as noted above in HPI - as noted above in HPI . Objective Last 8 Hrs Date Time Temp Pulse Resp B/P (MAP) Pulse Ox O2 Delivery O2 Flow Rate FiO2 08/08/17 07:10 Nasal Cannula 2.0 08/08/17 07:00 37.6 89 18 110/72 (85) 95 Nasal Cannula 2.0 08/08/17 03:50 37.2 98 16 110/75 (87) 92 Nasal Cannula 1.0 Physical Exam: General- sitting in chair at bedside; no distress Lungs- clear to auscultation; no respiratory distress Cardiovascular- irregular, apical rate ~ 100; III/ systolic murmur at base; no gallop; no JVD; trace pretibial edema Abdomen- + bowel sounds, distended, soft, nontender - Gonzales cath draining clear urine Extremities- no cyanosis; no calf tenderness; TEDS applied Neuro- alert, oriented Skin- warm; mild diaphoresis . Laboratory Results: Last 24 Hours Test 08/07/17 10:52 08/07/17 11:31 08/07/17 12:29 08/07/17 17:11 Hemoglobin 11.1 g/dL Hematocrit 33.9 % Bedside Glucose 187 mg/dl 206 mg/dl 197 mg/dl Test 08/07/17 20:56 08/08/17 06:11 08/08/17 08:05 Bedside Glucose 150 mg/dl 155 mg/dl White Blood Count 10.18 K/uL Red Blood Count 3.35 M/uL Hemoglobin 10.3 g/dL Hematocrit 30.4 % Mean Corpuscular Volume 90.7 fL Mean Corpuscular Hemoglobin 30.7 pg Mean Corpuscular Hemoglobin Concent 33.9 g/dl Platelet Count 128 K/uL Mean Platelet Volume 11.2 fL Neutrophils (%) (Auto) 82.3 % Lymphocytes (%) (Auto) 10.4 % Monocytes (%) (Auto) 6.6 % Eosinophils (%) (Auto) 0.0 % Basophils (%) (Auto) 0.1 % Neutrophils # (Auto) 8.38 K/uL Lymphocytes # (Auto) 1.06 K/uL Monocytes # (Auto) 0.67 K/uL Eosinophils # (Auto) 0.00 K/uL Basophils # (Auto) 0.01 K/uL RDW Standard Deviation 48.5 fL RDW Coefficient of Variation 14.8 % Immature Granulocyte % (Auto) 0.6 % Immature Granulocyte # (Auto) 0.06 K/uL Sodium Level 137 mmol/L Potassium Level 4.3 mmol/L Chloride Level 102 mmol/L Carbon Dioxide Level 26 mmol/L Anion Gap 9.0 mmol/L Blood Urea Nitrogen 16 mg/dl Creatinine 1.37 mg/dl Est Creatinine Clear Calc Drug Dose 61.3 ml/min Estimated GFR () 56.5 Estimated GFR (Non- 48.7 BUN/Creatinine Ratio 11.9 Random Glucose 156 mg/dl Estimated Average Glucose 128 mg/dl Hemoglobin A1c 6.1 % Calcium Level 8.2 mg/dl Assessment & Plan S/P LUMBAR DECOMPRESSION / FUSION POD # 1. CORONARY ARTERY DISEASE No anginal symptoms. Continue aspirin, metoprolol, isosorbide dinitrate, statin. AORTIC STENOSIS Hemodynamically stable. ATRIAL FIBRILLATION Continue metoprolol for rate control. Resume warfarin when OK from surgical perspective. HYPERTENSION BP's stable. Continue metoprolol and nitrates. COPD Oxygenating well on 1-2 L NC. Continue incentive spirometry + albuterol PRN. SLEEP APNEA CPAP ordered. Patient refused. CKD III Serum creatinine 1.37. Follow. DM TYPE 2 Usually well-controlled. Anticipate fluctuating blood sugars perioperatively due to surgery, decreased activity, dexamethasone, and need to hold oral agents. Hgb A1C 6.1. FBS this morning = 155. Lantus / NovoLog per protocol. Resume usual regimen at time of discharge. DYSLIPIDEMIA Continue atorvastatin. BPH Continue tamsulosin. Watch for retention when Gonzales removed. VTE PROPHYLAXIS TEDS / SCD's per Ortho protocol. DISPOSITION Family Medicine follow-up with Dr. French. Thank you for this consultation. We will follow the patient with you during their hospital stay. You can reach a member of the [facility] Medicine Team 30/01 via pager @ [phone]. You can reach me via cell @ [phone]. . Current Inpatient Medications: Current Inpatient Medications Medications (Trade) Dose Ordered Sig/Jonathan Route Start Time Stop Time Status Last Admin Dose Admin Ondansetron HCl (Zofran Inj) 4 mg ONE PRN IV 08/07/17 07:00 Promethazine HCl 12.5 mg/Sodium Chloride 50.5 ml @ 202 mls/hr Q6H PRN IV 08/07/17 11:15 09/06/17 11:14 Ondansetron HCl (Zofran Inj) 4 mg Q6H PRN IV 08/07/17 11:15 09/06/17 11:14 08/08/17 06:04 4 MG Metoclopramide HCl (Reglan Inj) 10 mg Q6H PRN IV 08/07/17 11:15 09/06/17 11:14 Lorazepam (Ativan Tab) 0.5 mg Q8H PRN PO 08/07/17 11:15 09/06/17 11:14 Lorazepam 0.5 mg/ Syringe 0.25 ml @ 1 mls/min Q8H PRN IV 08/07/17 11:15 09/06/17 11:14 Pneumococcal Polysaccharide Vaccine 1 ea PRN PRN N/A 08/07/17 11:15 09/06/17 11:14 Influenza Virus Vacc Triv Types A&B 1 ea PRN PRN N/A 08/07/17 11:15 09/06/17 11:14 Polyethylene (Miralax Powder Packet) 17 gm Q6 PO 08/09/17 06:00 09/08/17 05:59 Bisacodyl (Dulcolax Supp) 10 mg DAILY PRN [place] 08/07/17 11:15 09/06/17 11:14 Magnesium Hydroxide (Milk Of Magnesia Susp) 30 ml DAILY PRN PO 08/07/17 11:15 09/06/17 11:14 Hydromorphone HCl (Dilaudid Inj) 0.5-1mg prn moder... Q3H PRN IV 08/08/17 06:01 08/22/17 06:00 Oxycodone HCl (Roxicodone Immediate Rel Tab) 5-10mg prn moderate to sev... Q4H PRN PO 08/08/17 06:00 08/22/17 05:59 08/08/17 07:17 10 MG Sodium Chloride 1,000 ml @ 150 mls/hr Q6H40M IV 08/07/17 11:08 09/06/17 11:07 08/08/17 03:47 150 MLS/HR Acetaminophen (Tylenol Tab) 1,000 mg Q8H PRN PO 08/07/17 11:15 09/06/17 11:14 08/08/17 08:46 1,000 MG Acetaminophen 100 ml @ 400 mls/hr Q8H PRN IV 08/07/17 11:15 09/06/17 11:14 08/07/17 21:44 400 MLS/HR Naloxone HCl (Narcan Inj) 0.1 mg Q5M PRN IV 08/07/17 11:15 09/06/17 11:14 Senna/Docusate Sodium (Senokot S Tab) 2 tab HS PO 08/07/17 21:00 09/06/17 20:59 08/07/17 21:30 2 TAB Sodium Biphosphate/ Sodium Phosphate (Fleet Enema) 132 ml ONE PRN [place] 08/07/17 11:15 09/06/17 11:14 Hydroxyzine HCl (Vistaril Tab) 25 mg Q8H PRN PO 08/07/17 11:15 09/06/17 11:14 Al Hydroxide/Mg Hydroxide (Maalox Susp) 30 ml Q6H PRN PO 08/07/17 11:15 09/06/17 11:14 Famotidine (Pepcid Tab) 20 mg Q12 PRN PO 08/07/17 11:15 09/06/17 11:14 Diphenhydramine HCl (Benadryl Cap) 25 mg Q6H PRN PO 08/07/17 11:15 09/06/17 11:14 Albuterol (Ventolin Hfa Inhaler) 2 puffs Q6H PRN INH 08/07/17 11:15 09/06/17 11:14 Allopurinol (Zyloprim Tab) 100 mg QAM PO 08/08/17 09:00 09/07/17 08:59 08/08/17 08:47 100 MG Aspirin (Ecotrin Tab) 81 mg QPM PO 08/07/17 21:00 09/06/17 20:59 08/07/17 21:29 81 MG Atorvastatin Calcium (Lipitor Tab) 40 mg HS PO 08/07/17 21:00 09/06/17 20:59 08/07/17 21:28 40 MG Salmeterol Xinafoate/ Fluticasone (Advair Diskus 250/50 Inh) 1 puff BID INH 08/07/17 21:00 09/06/17 20:59 08/08/17 08:45 1 PUFF Fluticasone Propionate (Flonase Nasal [place]) 2 sprays DAILY PRN NA 08/07/17 11:15 09/06/17 11:14 Metoclopramide HCl (Reglan Tab) 10 mg TID PO 08/07/17 14:00 09/06/17 13:59 08/08/17 08:48 10 MG Metoprolol Succinate (Toprol Xl Tab) 50 mg BID PO 08/07/17 21:00 09/06/17 20:59 08/08/17 08:46 50 MG Mirabegron (Myrbetriq Er) 25 mg QAM PO 08/08/17 09:00 09/07/17 08:59 08/08/17 08:47 25 MG Nitroglycerin (Nitrostat Tab) 0.4 mg PRN PRN [place] 08/07/17 11:15 09/06/17 11:14 Oxybutynin Chloride (Ditropan Tab) 5 mg QAM PO 08/08/17 09:00 09/07/17 08:59 08/08/17 08:47 5 MG Pantoprazole Sodium (Protonix Tab) 40 mg QAM PO 08/08/17 09:00 09/07/17 08:59 08/08/17 08:48 40 MG Sertraline HCl (Zoloft Tab) 50 mg QPM PO 08/07/17 21:00 09/06/17 20:59 08/07/17 21:29 50 MG Sucralfate (Carafate Tab) 1 gm QID PO 08/07/17 13:00 09/06/17 12:59 08/08/17 08:47 1 GM Tamsulosin HCl (Flomax Cap) 0.4 mg QPM PO 08/07/17 21:00 09/06/17 20:59 08/07/17 21:28 0.4 MG Insulin Aspart (novoLOG ASPART) SLIDING SCALE If C... ACHS SC 08/07/17 17:15 09/06/17 17:14 08/08/17 08:54 5 UNITS Glucose (Glucose 40% Gel) 15-30 GRAMS 15 GRAMS... UD PRN PO 08/07/17 13:15 09/06/17 13:14 Glucose (Glucose Chew Tab) 4-8 Tablets 4 Tabl... UD PRN PO 08/07/17 13:15 09/06/17 13:14 Dextrose (Dextrose 50% 50ML Syringe) 25-50ML OF 50% DW IV FOR... UD PRN IV 08/07/17 13:15 09/06/17 13:14 Glucagon (Glucagon Inj) 1 mg UD PRN SQ 08/07/17 13:15 09/06/17 13:14 Isosorbide Mononitrate (Imdur Ext Rel Tab) 60 mg QAM PO 08/07/17 15:15 09/07/17 08:59 08/08/17 08:47 60 MG
[2017-08-08] MEDS ORDERED: NURSING VERBAL MED ORDER ONE (10:30)
[2017-08-08] MEDS ORDERED: INSULIN GLARGINE SOLOSTAR 100 UNITS/ML 3 ML PEN SC SCH (13:15)
[2017-08-08] MEDS ORDERED: KETOROLAC TROMETHAMINE 15 MG/ML VIAL IV. PRN (13:15)
--- NOTE | 2017-08-08 16:56 | Progress Note ---
Progress Note Date of Service Aug 08, 2017. Progress Note Patient complaining of back pain he has no leg pain. His vital signs are stable this time. He sitting in a chair. He has regional strength testing. Assessment status post multilevel lumbar decompression fusion. The stone initiate physical therapy assess his progress of the next few days and determine if he is okay for home versus rehabilitation.
[2017-08-08] MEDS: DOCUSATE SODIUM/SENNA 50/8.6MG TAB PO SCH (21:06)
[2017-08-08] MEDS: ATORVASTATIN 40 MG TAB PO SCH (21:06)
[2017-08-08] MEDS: ASPIRIN 81 MG ECTAB PO SCH (21:06)
[2017-08-08] MEDS: TAMSULOSIN HCL 0.4 MG CAP PO SCH (21:06)
[2017-08-08] MEDS: SERTRALINE HCL 50 MG TAB PO SCH (21:06)
[2017-08-08] MEDS: INSULIN GLARGINE SOLOSTAR 100 UNITS/ML 3 ML PEN SC SCH (21:10)
[2017-08-08] MEDS ORDERED: SODIUM CHLORIDE 0.9% 500ML 500 ML IV SCH (21:45)
[2017-08-09] VITALS (8 sets, daily range): BP systolic 112–122; BP diastolic 76–77; PULSE 86–90; TEMP 37.1–37.9; O2SAT 89–97
[2017-08-09] MEDS: POLYETHYLENE (MIRALAX) 17 GM PACK PO SCH ×4 (05:37→23:57)
[2017-08-09 07:34] LABS: CALCIUM 7.9 mg/dl (8.5-10.1); CREATININE 1.77 mg/dl (0.60-1.40)
--- NOTE | 2017-08-09 08:36 | Progress Note ---
Progress Note Date of Service Aug 09, 2017. Progress Note Patient complaining mostly of back pain. Leg symptoms are still improved. On exam he is sitting in chair at bedside. He has good strength testing. Assessment status post lumbar decompression fusion. This time will continue physical therapy still considering rehabilitation versus DC home.
[2017-08-09] MEDS ORDERED: SODIUM CHLORIDE 0.9% 1000ML 1,000 ML IV SCH (08:45)
[2017-08-09] MEDS: OXYBUTYNIN CHLORIDE 5 MG TAB PO SCH (09:08)
[2017-08-09] MEDS: OXYCODONE HCL IR 5 MG TAB (IMMEDIATE RELEASE) PO PRN ×2 (09:08→21:15)
[2017-08-09] MEDS: PANTOprazole SOD 40 MG TAB PO SCH (09:08)
[2017-08-09] MEDS: ALLOPURINOL 100 MG TAB PO SCH (09:08)
[2017-08-09] MEDS: MIRABEGRON ER 25 MG TAB PO SCH (09:08)
[2017-08-09] MEDS: METOCLOPRAMIDE HCL 10 MG TAB PO SCH ×3 (09:09→21:14)
[2017-08-09] MEDS: METOPROLOL SUCC 50MG EXT REL TAB PO SCH ×2 (09:09→21:15)
[2017-08-09] MEDS: SUCRALFATE 1 GM TAB PO SCH ×4 (09:09→21:14)
[2017-08-09] MEDS: ISOSORBIDE MONONITRATE 60 MG TABCR PO SCH (09:09)
[2017-08-09] MEDS: FLUTICASONE/SALMETEROL 250/50 (ADVAIR) 14 PUFF/1 INHALER INH SCH ×2 (09:09→21:14)
[2017-08-09] MEDS: INSULIN ASPART 100 UNITS/ML 3 ML PEN SC SCH ×4 (09:34→21:20)
[2017-08-09] MEDS: INSULIN GLARGINE SOLOSTAR 100 UNITS/ML 3 ML PEN SC SCH ×2 (09:35→21:21)
--- NOTE | 2017-08-09 10:01 | Progress Note ---
Medicine Progress Note Date & Time of Visit: Aug 09, 2017 at 09:45 . Subjective CC: Follow-up visit for multiple medical problems. HPI: No chest pain. No cough or SOB. Nausea resolved. No vomiting. Passing flatus; no stool yet. Gonzales cath removed yesterday; urine output low. Still having postoperative pain. ROS: General- no fever, no chills Resp- as noted above in HPI Cardiac- as noted above in HPI GI- as noted above in HPI - as noted above in HPI . Objective Last 8 Hrs Date Time Temp Pulse Resp B/P (MAP) Pulse Ox O2 Delivery O2 Flow Rate FiO2 08/09/17 08:50 Nasal Cannula 2.0 08/09/17 08:50 96 Nasal Cannula 2.0 08/09/17 08:00 96 Nasal Cannula 2.0 08/09/17 07:57 89 Room Air 08/09/17 07:56 37.9 86 18 112/76 (88) 97 Nasal Cannula 3.0 08/09/17 05:34 37.3 Physical Exam: General- sitting in chair at bedside; no distress Lungs- clear to auscultation; no respiratory distress Cardiovascular- irregular; III/ systolic murmur at base; no gallop; no JVD; trace pretibial edema Abdomen- + bowel sounds, distended, nontender Extremities- no cyanosis; no calf tenderness Neuro- alert, oriented Skin- warm; dry . Laboratory Results: Last 24 Hours Test 08/08/17 11:56 08/08/17 16:53 08/08/17 20:34 08/09/17 05:53 Bedside Glucose 195 mg/dl 158 mg/dl 177 mg/dl Sodium Level 135 mmol/L Potassium Level 4.0 mmol/L Chloride Level 103 mmol/L Carbon Dioxide Level 26 mmol/L Anion Gap 6.0 mmol/L Blood Urea Nitrogen 27 mg/dl Creatinine 1.77 mg/dl Est Creatinine Clear Calc Drug Dose 47.8 ml/min Estimated GFR () 41.4 Estimated GFR (Non- 35.7 BUN/Creatinine Ratio 15.0 Random Glucose 128 mg/dl Calcium Level 7.9 mg/dl Test 08/09/17 07:57 Bedside Glucose 150 mg/dl Assessment & Plan S/P LUMBAR DECOMPRESSION / FUSION POD # 2. CORONARY ARTERY DISEASE No anginal symptoms. Continue aspirin, metoprolol, isosorbide dinitrate, statin. AORTIC STENOSIS Hemodynamically stable. ATRIAL FIBRILLATION Continue metoprolol for rate control. Resume warfarin when OK from surgical perspective. HYPERTENSION BP's stable. Continue metoprolol and nitrates. COPD Oxygenating well on 1-2 L NC. Continue incentive spirometry + albuterol PRN. SLEEP APNEA CPAP ordered. Patient declined. CKD III Serum creatinine 1.37 --> 1.77. Toradol discontinued. IV fluids. Follow. DM TYPE 2 Usually well-controlled on metformin and glimepiride. Anticipate fluctuating blood sugars perioperatively due to surgery, decreased activity, dexamethasone, and need to hold oral agents. Hgb A1C 6.1. FBS this morning = 150. Lantus / NovoLog per protocol. Resume usual regimen at time of discharge. DYSLIPIDEMIA Continue atorvastatin. GOUT Continue allopurinol. BPH Continue tamsulosin. Watch for urinary retention. VTE PROPHYLAXIS TEDS / SCD's per Ortho protocol. DISPOSITION Family Medicine follow-up with Dr. French. Thank you for this consultation. We will follow the patient with you during their hospital stay. You can reach a member of the [facility] Medicine Team 30/01 via pager @ [phone]. You can reach me via cell @ [phone]. . Current Inpatient Medications: Current Inpatient Medications Medications (Trade) Dose Ordered Sig/Jonathan Route Start Time Stop Time Status Last Admin Dose Admin Ondansetron HCl (Zofran Inj) 4 mg ONE PRN IV 08/07/17 07:00 Promethazine HCl 12.5 mg/Sodium Chloride 50.5 ml @ 202 mls/hr Q6H PRN IV 08/07/17 11:15 09/06/17 11:14 Ondansetron HCl (Zofran Inj) 4 mg Q6H PRN IV 08/07/17 11:15 09/06/17 11:14 08/08/17 06:04 4 MG Metoclopramide HCl (Reglan Inj) 10 mg Q6H PRN IV 08/07/17 11:15 09/06/17 11:14 Lorazepam (Ativan Tab) 0.5 mg Q8H PRN PO 08/07/17 11:15 09/06/17 11:14 Lorazepam 0.5 mg/ Syringe 0.25 ml @ 1 mls/min Q8H PRN IV 08/07/17 11:15 09/06/17 11:14 Pneumococcal Polysaccharide Vaccine 1 ea PRN PRN N/A 08/07/17 11:15 09/06/17 11:14 Influenza Virus Vacc Triv Types A&B 1 ea PRN PRN N/A 08/07/17 11:15 09/06/17 11:14 Polyethylene (Miralax Powder Packet) 17 gm Q6 PO 08/09/17 06:00 09/08/17 05:59 08/09/17 05:37 17 GM Bisacodyl (Dulcolax Supp) 10 mg DAILY PRN [place] 08/07/17 11:15 09/06/17 11:14 Magnesium Hydroxide (Milk Of Magnesia Susp) 30 ml DAILY PRN PO 08/07/17 11:15 09/06/17 11:14 Hydromorphone HCl (Dilaudid Inj) 0.5-1mg prn moder... Q3H PRN IV 08/08/17 06:01 08/22/17 06:00 Oxycodone HCl (Roxicodone Immediate Rel Tab) 5-10mg prn moderate to sev... Q4H PRN PO 08/08/17 06:00 08/22/17 05:59 08/09/17 09:08 10 MG Acetaminophen (Tylenol Tab) 1,000 mg Q8H PRN PO 08/07/17 11:15 09/06/17 11:14 08/08/17 08:46 1,000 MG Acetaminophen 100 ml @ 400 mls/hr Q8H PRN IV 08/07/17 11:15 09/06/17 11:14 08/07/17 21:44 400 MLS/HR Naloxone HCl (Narcan Inj) 0.1 mg Q5M PRN IV 08/07/17 11:15 09/06/17 11:14 Senna/Docusate Sodium (Senokot S Tab) 2 tab HS PO 08/07/17 21:00 09/06/17 20:59 08/08/17 21:06 2 TAB Sodium Biphosphate/ Sodium Phosphate (Fleet Enema) 132 ml ONE PRN [place] 08/07/17 11:15 09/06/17 11:14 Hydroxyzine HCl (Vistaril Tab) 25 mg Q8H PRN PO 08/07/17 11:15 09/06/17 11:14 Al Hydroxide/Mg Hydroxide (Maalox Susp) 30 ml Q6H PRN PO 08/07/17 11:15 09/06/17 11:14 Famotidine (Pepcid Tab) 20 mg Q12 PRN PO 08/07/17 11:15 09/06/17 11:14 Diphenhydramine HCl (Benadryl Cap) 25 mg Q6H PRN PO 08/07/17 11:15 09/06/17 11:14 Albuterol (Ventolin Hfa Inhaler) 2 puffs Q6H PRN INH 08/07/17 11:15 09/06/17 11:14 Allopurinol (Zyloprim Tab) 100 mg QAM PO 08/08/17 09:00 09/07/17 08:59 08/09/17 09:08 100 MG Aspirin (Ecotrin Tab) 81 mg QPM PO 08/07/17 21:00 09/06/17 20:59 08/08/17 21:06 81 MG Atorvastatin Calcium (Lipitor Tab) 40 mg HS PO 08/07/17 21:00 09/06/17 20:59 08/08/17 21:06 40 MG Salmeterol Xinafoate/ Fluticasone (Advair Diskus 250/50 Inh) 1 puff BID INH 08/07/17 21:00 09/06/17 20:59 08/09/17 09:09 1 PUFF Fluticasone Propionate (Flonase Nasal [place]) 2 sprays DAILY PRN NA 08/07/17 11:15 09/06/17 11:14 Metoclopramide HCl (Reglan Tab) 10 mg TID PO 08/07/17 14:00 09/06/17 13:59 08/09/17 09:09 10 MG Metoprolol Succinate (Toprol Xl Tab) 50 mg BID PO 08/07/17 21:00 09/06/17 20:59 08/09/17 09:09 50 MG Mirabegron (Myrbetriq Er) 25 mg QAM PO 08/08/17 09:00 09/07/17 08:59 08/09/17 09:08 25 MG Nitroglycerin (Nitrostat Tab) 0.4 mg PRN PRN [place] 08/07/17 11:15 09/06/17 11:14 Oxybutynin Chloride (Ditropan Tab) 5 mg QAM PO 08/08/17 09:00 09/07/17 08:59 08/09/17 09:08 5 MG Pantoprazole Sodium (Protonix Tab) 40 mg QAM PO 08/08/17 09:00 09/07/17 08:59 08/09/17 09:08 40 MG Sertraline HCl (Zoloft Tab) 50 mg QPM PO 08/07/17 21:00 09/06/17 20:59 08/08/17 21:06 50 MG Sucralfate (Carafate Tab) 1 gm QID PO 08/07/17 13:00 09/06/17 12:59 08/09/17 09:09 1 GM Tamsulosin HCl (Flomax Cap) 0.4 mg QPM PO 08/07/17 21:00 09/06/17 20:59 08/08/17 21:06 0.4 MG Insulin Aspart (novoLOG ASPART) SLIDING SCALE If C... ACHS SC 08/07/17 17:15 09/06/17 17:14 08/09/17 09:34 9 UNITS Glucose (Glucose 40% Gel) 15-30 GRAMS 15 GRAMS... UD PRN PO 08/07/17 13:15 09/06/17 13:14 Glucose (Glucose Chew Tab) 4-8 Tablets 4 Tabl... UD PRN PO 08/07/17 13:15 09/06/17 13:14 Dextrose (Dextrose 50% 50ML Syringe) 25-50ML OF 50% DW IV FOR... UD PRN IV 08/07/17 13:15 09/06/17 13:14 Glucagon (Glucagon Inj) 1 mg UD PRN SQ 08/07/17 13:15 09/06/17 13:14 Isosorbide Mononitrate (Imdur Ext Rel Tab) 60 mg QAM PO 08/07/17 15:15 09/07/17 08:59 08/09/17 09:09 60 MG Insulin Glargine (Lantus Solostar Pen) BSG LANTUS SQ < ... BID SC 08/08/17 21:00 3/1/18 20:59 08/09/17 09:35 15 UNITS Sodium Chloride 1,000 ml @ 200 mls/hr Q5H IV 08/09/17 08:45 08/09/17 13:44 08/09/17 09:38 200 MLS/HR
--- NOTE | 2017-08-09 14:22 | DIAGNOSTIC IMAGING REPORT ---
CHEST ONE VIEW PORTABLE CLINICAL HISTORY: Shortness of breath COMPARISON STUDY: No previous studies for comparison. FINDINGS: The heart is enlarged. There are postsurgical changes of a midline sternotomy. There is no lobar consolidation. Right perihilar linear opacities are likely atelectatic. There is mild left basilar atelectatic change. There is minor blunting of the left lateral costophrenic angle.[ There is tracheal deviation to the right, likely secondary to ectatic great vessels or a thyroid goiter IMPRESSION: Cardiomegaly. No evidence of focal pulmonary consolidation. Nonspecific blunting of the left lateral costophrenic angle Electronically signed by: Issa Solano M.D. 08/09/2017 2:21 PM Dictated Date/Time: 08/09/2017 2:19 PM
[2017-08-09] MEDS: DOCUSATE SODIUM/SENNA 50/8.6MG TAB PO SCH (21:14)
[2017-08-09] MEDS: TAMSULOSIN HCL 0.4 MG CAP PO SCH (21:14)
[2017-08-09] MEDS: SERTRALINE HCL 50 MG TAB PO SCH (21:14)
[2017-08-09] MEDS: ASPIRIN 81 MG ECTAB PO SCH (21:15)
[2017-08-09] MEDS: ATORVASTATIN 40 MG TAB PO SCH (21:15)
[2017-08-10] MEDS: POLYETHYLENE (MIRALAX) 17 GM PACK PO SCH ×4 (05:35→23:30)
[2017-08-10] MEDS: OXYCODONE HCL IR 5 MG TAB (IMMEDIATE RELEASE) PO PRN ×3 (06:10→23:31)
[2017-08-10 06:47] LABS: HEMATOCRIT 26.2 % (42-52); HEMOGLOBIN 8.8 g/dL (14.0-18.0)
[2017-08-10 07:07] VITALS: BP 124/75; PULSE 90; TEMP 37; O2SAT 97
[2017-08-10 07:23] LABS: CALCIUM 7.9 mg/dl (8.5-10.1); CREATININE 1.4 mg/dl (0.60-1.40); POTASSIUM 4.1 mmol/L (3.5-5.1)
[2017-08-10] MEDS: INSULIN ASPART 100 UNITS/ML 3 ML PEN SC SCH ×4 (08:00→21:55)
--- NOTE | 2017-08-10 08:17 | Orthopedic Progress Note ---
Orthopedic Progress Note Date of Service Aug 10, 2017. Subjective Post OP Day: 3 Reports: feeling well Additional Notes: Patient reports no complaints. No radicular leg pain. He reports back pain is controlled. GODFREY drain output left shift is 30 mL. He's had a bowel movement. H &H is 8.8 and 26.2 respectively. Yesterday physical therapy Ambulating roughly 40 feet Objective calves soft nontender, N/V intact, dressing C/D/I Patient is in no obvious distress. Lumbar dressing is clean dry and intact. Lower extremities are neurovascularly intact. calves soft nontender. Date Time Temp Pulse Resp B/P (MAP) Pulse Ox O2 Delivery O2 Flow Rate FiO2 08/10/17 07:07 37.0 90 19 124/75 (91) 97 Nasal Cannula 3.0 08/10/17 00:00 Nasal Cannula 3.0 08/09/17 23:19 37.1 88 16 122/76 (91) 95 Nasal Cannula 2.0 08/09/17 16:00 Nasal Cannula 3.0 08/09/17 15:43 37.1 89 16 115/77 (90) 97 Nasal Cannula 2.0 08/09/17 11:51 37.9 90 18 118/76 (90) 96 Nasal Cannula 3.0 08/09/17 08:50 Nasal Cannula 2.0 08/09/17 08:50 96 Nasal Cannula 2.0 Laboratory Results 24 Hours: Test 08/10/17 06:01 Hematocrit 26.2 % Hemoglobin 8.8 g/dL Assessment & Plan Assessment: Postoperative day #3 lumbar decompression fusion Plan: We'll continue physical therapy today. We are currently awaiting authorization and bed availability from [facility]. He may be discharged today if bed is available insurance has approved. We will DC GODFREY drain and dressing change prior. Inhouse Planning DVT Prophylaxis: PAULINE Calderons Discharge Planning Discharge Planning: rehab hospital DVT Prophylaxis: Yumiko
[2017-08-10] MEDS: PANTOprazole SOD 40 MG TAB PO SCH (09:43)
[2017-08-10] MEDS: FLUTICASONE/SALMETEROL 250/50 (ADVAIR) 14 PUFF/1 INHALER INH SCH ×2 (09:43→21:46)
[2017-08-10] MEDS: MIRABEGRON ER 25 MG TAB PO SCH (09:43)
[2017-08-10] MEDS: ISOSORBIDE MONONITRATE 60 MG TABCR PO SCH (09:44)
[2017-08-10] MEDS: METOPROLOL SUCC 50MG EXT REL TAB PO SCH ×2 (09:44→21:45)
[2017-08-10] MEDS: ALLOPURINOL 100 MG TAB PO SCH (09:44)
[2017-08-10] MEDS: METOCLOPRAMIDE HCL 10 MG TAB PO SCH ×3 (09:44→21:45)
[2017-08-10] MEDS: OXYBUTYNIN CHLORIDE 5 MG TAB PO SCH (09:44)
[2017-08-10] MEDS: SUCRALFATE 1 GM TAB PO SCH ×4 (09:46→21:46)
[2017-08-10] MEDS: INSULIN GLARGINE SOLOSTAR 100 UNITS/ML 3 ML PEN SC SCH ×2 (09:53→21:56)
--- NOTE | 2017-08-10 11:21 | DIAGNOSTIC IMAGING REPORT ---
CERVICAL SPINE 6 VIEWS CLINICAL HISTORY: Neck pain. FINDINGS: AP, lateral, bilateral oblique, odontoid, and swimmer's views of the cervical spine are attempted. The examination is severely degraded by suboptimal positioning. The skeletal structures are osteopenic. There is no radiographic evidence of acute fracture or malalignment. Vertebral body height is grossly maintained. The lower cervical spine is only seen on the swimmer's view. Retrolisthesis is seen at C3-C4 and C4-C5. Alignment is otherwise grossly preserved. The spinolaminar line is intact. The odontoid process and lateral masses are maintained as seen on the open-mouth view. Productive degenerative change is noted at the atlantodental articulation. Anterior osteophytes are seen throughout. Mild disc space narrowing is seen throughout the cervical spine. This is greatest at C3-C4. Multilevel facet arthropathy is noted. Mild neural foraminal stenosis is suggested in the lower cervical region bilaterally on the oblique views. The prevertebral soft tissues are normal as imaged. There is atherosclerotic calcification of the carotid bulbs. Midline sternotomy wires are noted. IMPRESSION: 1. Significantly degraded examination due to inability to properly position the patient. 2. No acute bony abnormality is identified on the provided images. 3. Osteopenia and spondylotic change as above. Dictated: 08/10/2017 10:48 AM Transcribed: 08/10/2017 11:21 AM [facility] Electronically signed by: Ruben Ortega M.D. 08/10/2017 11:25 AM Dictated Date/Time: 08/10/2017 10:48 AM
[2017-08-10 15:45] VITALS: O2SAT 97
[2017-08-10 16:16] VITALS: BP 120/83; PULSE 96; TEMP 37.2; O2SAT 96
--- NOTE | 2017-08-10 20:52 | Progress Note ---
Medicine Progress Note Date & Time of Visit: Aug 10, 2017 at 09:20 . Subjective CC: Postoperative follow-up visit for multiple medical problems. HPI: Tired. No chest pain. No cough or SOB. Nausea resolved. No vomiting. Passing flatus and stool. Urine output low. Still having postoperative pain. Experiencing posterior neck pain today, no associated radiculopathy. Discouraged regarding slow postop progress. ROS: General- no fever, no chills Resp- as noted above in HPI Cardiac- as noted above in HPI GI- as noted above in HPI - as noted above in HPI . Objective Last 8 Hrs Date Time Temp Pulse Resp B/P (MAP) Pulse Ox O2 Delivery O2 Flow Rate FiO2 08/10/17 16:16 37.2 96 20 120/83 (95) 96 Nasal Cannula 3.0 08/10/17 15:45 97 Nasal Cannula 3.0 Physical Exam: General- lying in bed; no distress Lungs- clear to auscultation; no respiratory distress Cardiovascular- irregular; III/ systolic murmur at base; no gallop; no JVD; trace pretibial edema Abdomen- + bowel sounds, distended, nontender Extremities- no cyanosis; no calf tenderness Musculoskeletal- no cervical tenderness Neuro- alert, oriented Skin- warm; dry . Laboratory Results: Last 24 Hours Test 08/10/17 06:01 08/10/17 07:54 08/10/17 17:07 Hemoglobin 8.8 g/dL Hematocrit 26.2 % Sodium Level 134 mmol/L Potassium Level 4.1 mmol/L Chloride Level 102 mmol/L Carbon Dioxide Level 27 mmol/L Anion Gap 5.0 mmol/L Blood Urea Nitrogen 23 mg/dl Creatinine 1.40 mg/dl Est Creatinine Clear Calc Drug Dose 61.6 ml/min Estimated GFR () 55.0 Estimated GFR (Non- 47.5 BUN/Creatinine Ratio 16.2 Random Glucose 132 mg/dl Calcium Level 7.9 mg/dl Bedside Glucose 160 mg/dl 163 mg/dl Assessment & Plan S/P LUMBAR DECOMPRESSION / FUSION POD # 3. CORONARY ARTERY DISEASE No anginal symptoms. Continue aspirin, metoprolol, isosorbide dinitrate, statin. AORTIC STENOSIS Hemodynamically stable. ATRIAL FIBRILLATION Continue metoprolol for rate control. Resume warfarin when OK from surgical perspective. HYPERTENSION BP's stable. Continue metoprolol and nitrates. COPD Oxygenating well on 1-2 L NC. Continue incentive spirometry + albuterol PRN. SLEEP APNEA CPAP ordered. Patient declined. CKD III Serum creatinine 1.37 --> 1.7. Toradol discontinued. Received IV fluids. Creatinine today 1.4. Follow. DM TYPE 2 Usually well-controlled on metformin and glimepiride. Anticipate fluctuating blood sugars perioperatively due to surgery, decreased activity, dexamethasone, and need to hold oral agents. Hgb A1C 6.1. FBS this morning = 160. Lantus / NovoLog per protocol. Resume usual regimen at time of discharge. DYSLIPIDEMIA Continue atorvastatin. GOUT Continue allopurinol. BPH Continue tamsulosin. Watch for urinary retention. ANEMIA Hgb 13.5 --> --> 8.8. Acute blood loss anemia secondary to surgery. No need for transfusion at this time. Follow. NECK PAIN Check plain films. Analgesics, heating pad PRN. VTE PROPHYLAXIS TEDS / SCD's per Ortho protocol. DISPOSITION Family Medicine follow-up with Dr. French. Thank you for this consultation. We will follow the patient with you during their hospital stay. You can reach a member of the [facility] Medicine Team 30/01 via pager @ [phone]. You can reach me via cell @ [phone]. . Current Inpatient Medications: Current Inpatient Medications Medications (Trade) Dose Ordered Sig/Jonathan Route Start Time Stop Time Status Last Admin Dose Admin Ondansetron HCl (Zofran Inj) 4 mg ONE PRN IV 08/07/17 07:00 Promethazine HCl 12.5 mg/Sodium Chloride 50.5 ml @ 202 mls/hr Q6H PRN IV 08/07/17 11:15 09/06/17 11:14 Ondansetron HCl (Zofran Inj) 4 mg Q6H PRN IV 08/07/17 11:15 09/06/17 11:14 08/08/17 06:04 4 MG Metoclopramide HCl (Reglan Inj) 10 mg Q6H PRN IV 08/07/17 11:15 09/06/17 11:14 Lorazepam (Ativan Tab) 0.5 mg Q8H PRN PO 08/07/17 11:15 09/06/17 11:14 Lorazepam 0.5 mg/ Syringe 0.25 ml @ 1 mls/min Q8H PRN IV 08/07/17 11:15 09/06/17 11:14 Pneumococcal Polysaccharide Vaccine 1 ea PRN PRN N/A 08/07/17 11:15 09/06/17 11:14 Influenza Virus Vacc Triv Types A&B 1 ea PRN PRN N/A 08/07/17 11:15 09/06/17 11:14 Polyethylene (Miralax Powder Packet) 17 gm Q6 PO 08/09/17 06:00 09/08/17 05:59 08/10/17 19:20 17 GM Bisacodyl (Dulcolax Supp) 10 mg DAILY PRN [place] 08/07/17 11:15 09/06/17 11:14 Magnesium Hydroxide (Milk Of Magnesia Susp) 30 ml DAILY PRN PO 08/07/17 11:15 09/06/17 11:14 Hydromorphone HCl (Dilaudid Inj) 0.5-1mg prn moder... Q3H PRN IV 08/08/17 06:01 08/22/17 06:00 08/09/17 11:17 1 MG Oxycodone HCl (Roxicodone Immediate Rel Tab) 5-10mg prn moderate to sev... Q4H PRN PO 08/08/17 06:00 08/22/17 05:59 08/10/17 14:12 10 MG Acetaminophen (Tylenol Tab) 1,000 mg Q8H PRN PO 08/07/17 11:15 09/06/17 11:14 08/08/17 08:46 1,000 MG Acetaminophen 100 ml @ 400 mls/hr Q8H PRN IV 08/07/17 11:15 09/06/17 11:14 08/07/17 21:44 400 MLS/HR Naloxone HCl (Narcan Inj) 0.1 mg Q5M PRN IV 08/07/17 11:15 09/06/17 11:14 Senna/Docusate Sodium (Senokot S Tab) 2 tab HS PO 08/07/17 21:00 09/06/17 20:59 08/09/17 21:14 2 TAB Sodium Biphosphate/ Sodium Phosphate (Fleet Enema) 132 ml ONE PRN [place] 08/07/17 11:15 09/06/17 11:14 Hydroxyzine HCl (Vistaril Tab) 25 mg Q8H PRN PO 08/07/17 11:15 09/06/17 11:14 Al Hydroxide/Mg Hydroxide (Maalox Susp) 30 ml Q6H PRN PO 08/07/17 11:15 09/06/17 11:14 Famotidine (Pepcid Tab) 20 mg Q12 PRN PO 08/07/17 11:15 09/06/17 11:14 Diphenhydramine HCl (Benadryl Cap) 25 mg Q6H PRN PO 08/07/17 11:15 09/06/17 11:14 Albuterol (Ventolin Hfa Inhaler) 2 puffs Q6H PRN INH 08/07/17 11:15 09/06/17 11:14 08/09/17 17:06 2 PUFFS Allopurinol (Zyloprim Tab) 100 mg QAM PO 08/08/17 09:00 09/07/17 08:59 08/10/17 09:44 100 MG Aspirin (Ecotrin Tab) 81 mg QPM PO 08/07/17 21:00 09/06/17 20:59 08/09/17 21:15 81 MG Atorvastatin Calcium (Lipitor Tab) 40 mg HS PO 08/07/17 21:00 09/06/17 20:59 08/09/17 21:15 40 MG Salmeterol Xinafoate/ Fluticasone (Advair Diskus 250/50 Inh) 1 puff BID INH 08/07/17 21:00 09/06/17 20:59 08/10/17 09:43 1 PUFF Fluticasone Propionate (Flonase Nasal [place]) 2 sprays DAILY PRN NA 08/07/17 11:15 09/06/17 11:14 Metoclopramide HCl (Reglan Tab) 10 mg TID PO 08/07/17 14:00 09/06/17 13:59 08/10/17 14:12 10 MG Metoprolol Succinate (Toprol Xl Tab) 50 mg BID PO 08/07/17 21:00 09/06/17 20:59 08/10/17 09:44 50 MG Mirabegron (Myrbetriq Er) 25 mg QAM PO 08/08/17 09:00 3/1/18 08:59 08/10/17 09:43 25 MG Nitroglycerin (Nitrostat Tab) 0.4 mg PRN PRN [place] 08/07/17 11:15 09/06/17 11:14 Oxybutynin Chloride (Ditropan Tab) 5 mg QAM PO 08/08/17 09:00 09/07/17 08:59 08/10/17 09:44 5 MG Pantoprazole Sodium (Protonix Tab) 40 mg QAM PO 08/08/17 09:00 09/07/17 08:59 08/10/17 09:43 40 MG Sertraline HCl (Zoloft Tab) 50 mg QPM PO 08/07/17 21:00 09/06/17 20:59 08/09/17 21:14 50 MG Sucralfate (Carafate Tab) 1 gm QID PO 08/07/17 13:00 09/06/17 12:59 08/10/17 19:19 1 GM Tamsulosin HCl (Flomax Cap) 0.4 mg QPM PO 08/07/17 21:00 09/06/17 20:59 08/09/17 21:14 0.4 MG Insulin Aspart (novoLOG ASPART) SLIDING SCALE If C... ACHS SC 08/07/17 17:15 09/06/17 17:14 08/10/17 20:07 7 UNITS Glucose (Glucose 40% Gel) 15-30 GRAMS 15 GRAMS... UD PRN PO 08/07/17 13:15 09/06/17 13:14 Glucose (Glucose Chew Tab) 4-8 Tablets 4 Tabl... UD PRN PO 08/07/17 13:15 09/06/17 13:14 Dextrose (Dextrose 50% 50ML Syringe) 25-50ML OF 50% DW IV FOR... UD PRN IV 08/07/17 13:15 09/06/17 13:14 Glucagon (Glucagon Inj) 1 mg UD PRN SQ 08/07/17 13:15 09/06/17 13:14 Isosorbide Mononitrate (Imdur Ext Rel Tab) 60 mg QAM PO 08/07/17 15:15 09/07/17 08:59 08/10/17 09:44 60 MG Insulin Glargine (Lantus Solostar Pen) BSG LANTUS SQ < ... BID SC 08/08/17 21:00 09/07/17 20:59 08/10/17 09:53 15 UNITS
[2017-08-10] MEDS: ASPIRIN 81 MG ECTAB PO SCH (21:45)
[2017-08-10] MEDS: ATORVASTATIN 40 MG TAB PO SCH (21:45)
[2017-08-10] MEDS: SERTRALINE HCL 50 MG TAB PO SCH (21:46)
[2017-08-10] MEDS: DOCUSATE SODIUM/SENNA 50/8.6MG TAB PO SCH (21:46)
[2017-08-10] MEDS: TAMSULOSIN HCL 0.4 MG CAP PO SCH (21:47)
[2017-08-10 23:11] VITALS: BP 142/90; PULSE 105; TEMP 37; O2SAT 97
[2017-08-11] MEDS: POLYETHYLENE (MIRALAX) 17 GM PACK PO SCH ×4 (06:32→23:56)
[2017-08-11] MEDS: OXYCODONE HCL IR 5 MG TAB (IMMEDIATE RELEASE) PO PRN (07:07)
[2017-08-11 07:45] LABS: HEMATOCRIT 27.8 % (42-52); HEMOGLOBIN 9.5 g/dL (14.0-18.0); MEAN CELL VOLUME 92.4 fL (80-100); MEAN CORPUSCULAR HEMOGLOBIN 31.6 pg (25-34); MEAN CORPUSCULAR HGB CONC 34.2 g/dl (32-36); MEAN PLATELET VOLUME 11.3 fL (7.4-10.4); PLATELET COUNT 135 K/uL (130-400); RED CELL DISTRIBUTION WIDTH CV 14.7 % (11.5-14.5); RED CELL DISTRIBUTION WIDTH SD 49.3 fL (36.4-46.3); WHITE BLOOD COUNT 6.77 K/uL (4.8-10.8)
[2017-08-11 07:51] VITALS: BP 116/84; PULSE 86; TEMP 36.9; O2SAT 97
[2017-08-11 07:59] VITALS: O2SAT 97
[2017-08-11 08:10] LABS: CALCIUM 8.7 mg/dl (8.5-10.1); CREATININE 1.43 mg/dl (0.60-1.40); POTASSIUM 4.2 mmol/L (3.5-5.1)
[2017-08-11] MEDS: FLUTICASONE/SALMETEROL 250/50 (ADVAIR) 14 PUFF/1 INHALER INH SCH ×2 (08:46→21:46)
[2017-08-11] MEDS: SUCRALFATE 1 GM TAB PO SCH ×4 (08:47→21:47)
[2017-08-11] MEDS: OXYBUTYNIN CHLORIDE 5 MG TAB PO SCH (08:48)
[2017-08-11] MEDS: ISOSORBIDE MONONITRATE 60 MG TABCR PO SCH (08:49)
[2017-08-11] MEDS: MIRABEGRON ER 25 MG TAB PO SCH (08:49)
[2017-08-11] MEDS: METOCLOPRAMIDE HCL 10 MG TAB PO SCH ×3 (08:50→21:47)
[2017-08-11] MEDS: PANTOprazole SOD 40 MG TAB PO SCH (08:50)
[2017-08-11] MEDS: METOPROLOL SUCC 50MG EXT REL TAB PO SCH ×2 (08:51→21:53)
[2017-08-11] MEDS: ALLOPURINOL 100 MG TAB PO SCH (08:52)
[2017-08-11] MEDS: INSULIN ASPART 100 UNITS/ML 3 ML PEN SC SCH ×4 (09:16→21:50)
[2017-08-11] MEDS: INSULIN GLARGINE SOLOSTAR 100 UNITS/ML 3 ML PEN SC SCH ×2 (09:17→21:51)
[2017-08-11 12:05] VITALS: BP 105/72; PULSE 90; TEMP 36.7; O2SAT 98
--- NOTE | 2017-08-11 12:14 | Progress Note ---
Progress Note Date of Service Aug 11, 2017. Progress Note Patient's complaining mostly of intermittent back pain. Leg symptoms continue to improve. Vital signs are stable. On exam he is sitting in a chair at the bedside. His Strength testing. Assessment status post multilevel lumbar decompression fusion. Plan at this time we will continue physical therapy and anticipate discharge to rehabilitation Monday.
[2017-08-11 15:10] VITALS: BP 104/70; PULSE 101; TEMP 37.2; O2SAT 97
--- NOTE | 2017-08-11 20:36 | Progress Note ---
Medicine Progress Note Date & Time of Visit: Aug 11, 2017 at 15:50 . Subjective CC: Postoperative follow-up visit for multiple medical problems. HPI: Feels a little better today. No chest pain. Occasional cough, no SOB. Appetite improved, no nausea or vomiting. Passing flatus and stool. Postoperative pain better. Neck pain better. Family visiting. ROS: General- no fever, no chills Resp- as noted above in HPI Cardiac- as noted above in HPI GI- as noted above in HPI - as noted above in HPI . Objective Last 8 Hrs Date Time Temp Pulse Resp B/P (MAP) Pulse Ox O2 Delivery O2 Flow Rate FiO2 08/11/17 15:35 Room Air 08/11/17 15:10 37.2 101 20 104/70 (81) 97 Nasal Cannula 3.0 Physical Exam: General- lying in bed; no distress Lungs- clear to auscultation; no respiratory distress Cardiovascular- irregular; III/ systolic murmur at base; no gallop; no JVD; trace pretibial edema Abdomen- + bowel sounds, distended, nontender Extremities- no cyanosis; no calf tenderness Neuro- alert, oriented Skin- warm; dry . Laboratory Results: Last 24 Hours Test 08/10/17 20:54 08/11/17 06:57 08/11/17 07:54 08/11/17 11:50 Bedside Glucose 175 mg/dl 175 mg/dl 179 mg/dl White Blood Count 6.77 K/uL Red Blood Count 3.01 M/uL Hemoglobin 9.5 g/dL Hematocrit 27.8 % Mean Corpuscular Volume 92.4 fL Mean Corpuscular Hemoglobin 31.6 pg Mean Corpuscular Hemoglobin Concent 34.2 g/dl RDW Standard Deviation 49.3 fL RDW Coefficient of Variation 14.7 % Platelet Count 135 K/uL Mean Platelet Volume 11.3 fL Sodium Level 137 mmol/L Potassium Level 4.2 mmol/L Chloride Level 103 mmol/L Carbon Dioxide Level 25 mmol/L Anion Gap 9.0 mmol/L Blood Urea Nitrogen 26 mg/dl Creatinine 1.43 mg/dl Est Creatinine Clear Calc Drug Dose 60.3 ml/min Estimated GFR () 53.6 Estimated GFR (Non- 46.3 BUN/Creatinine Ratio 18.3 Random Glucose 142 mg/dl Calcium Level 8.7 mg/dl Test 08/11/17 16:57 08/11/17 20:23 Bedside Glucose 149 mg/dl 173 mg/dl Assessment & Plan S/P LUMBAR DECOMPRESSION / FUSION POD # 4. CORONARY ARTERY DISEASE No anginal symptoms. Continue aspirin, metoprolol, isosorbide dinitrate, statin. AORTIC STENOSIS Hemodynamically stable. ATRIAL FIBRILLATION Continue metoprolol for rate control. Resume warfarin when OK from surgical perspective. HYPERTENSION BP's stable. Continue metoprolol and nitrates. COPD Oxygenating well on 1-2 L NC. Continue incentive spirometry + albuterol PRN. SLEEP APNEA CPAP ordered. Patient declined. CKD III Serum creatinine 1.37 --> 1.7. Toradol discontinued. Received IV fluids. Creatinine today 1.43. Follow. DM TYPE 2 Usually well-controlled on metformin and glimepiride. Anticipate fluctuating blood sugars perioperatively due to surgery, decreased activity, dexamethasone, and need to hold oral agents. Hgb A1C 6.1. FBS this morning = 175. Lantus / NovoLog per protocol. Resume usual regimen at time of discharge. DYSLIPIDEMIA Continue atorvastatin. GOUT Continue allopurinol. BPH Continue tamsulosin. Watch for urinary retention. ANEMIA Hgb 13.5 --> --> 8.8 --> 9.5. Acute blood loss anemia secondary to surgery. No need for transfusion at this time. Follow. NECK PAIN Plain films showed degenerative changes without acute findings. Improved. Analgesics, heating pad PRN. VTE PROPHYLAXIS TEDS / SCD's per Ortho protocol. DISPOSITION Family Medicine follow-up with Dr. French. Thank you for this consultation. We will follow the patient with you during their hospital stay. You can reach a member of the [facility] Medicine Team 30/01 via pager @ [phone]. You can reach me via cell @ [phone]. . Current Inpatient Medications: Current Inpatient Medications Medications (Trade) Dose Ordered Sig/Jonathan Route Start Time Stop Time Status Last Admin Dose Admin Ondansetron HCl (Zofran Inj) 4 mg ONE PRN IV 08/07/17 07:00 Promethazine HCl 12.5 mg/Sodium Chloride 50.5 ml @ 202 mls/hr Q6H PRN IV 08/07/17 11:15 09/06/17 11:14 Ondansetron HCl (Zofran Inj) 4 mg Q6H PRN IV 08/07/17 11:15 09/06/17 11:14 08/08/17 06:04 4 MG Metoclopramide HCl (Reglan Inj) 10 mg Q6H PRN IV 08/07/17 11:15 09/06/17 11:14 Lorazepam (Ativan Tab) 0.5 mg Q8H PRN PO 08/07/17 11:15 09/06/17 11:14 Lorazepam 0.5 mg/ Syringe 0.25 ml @ 1 mls/min Q8H PRN IV 08/07/17 11:15 09/06/17 11:14 Pneumococcal Polysaccharide Vaccine 1 ea PRN PRN N/A 08/07/17 11:15 09/06/17 11:14 Influenza Virus Vacc Triv Types A&B 1 ea PRN PRN N/A 08/07/17 11:15 09/06/17 11:14 Polyethylene (Miralax Powder Packet) 17 gm Q6 PO 08/09/17 06:00 09/08/17 05:59 08/11/17 17:18 17 GM Bisacodyl (Dulcolax Supp) 10 mg DAILY PRN [place] 08/07/17 11:15 09/06/17 11:14 Magnesium Hydroxide (Milk Of Magnesia Susp) 30 ml DAILY PRN PO 08/07/17 11:15 09/06/17 11:14 Hydromorphone HCl (Dilaudid Inj) 0.5-1mg prn moder... Q3H PRN IV 08/08/17 06:01 08/22/17 06:00 08/09/17 11:17 1 MG Oxycodone HCl (Roxicodone Immediate Rel Tab) 5-10mg prn moderate to sev... Q4H PRN PO 08/08/17 06:00 08/22/17 05:59 08/11/17 07:07 10 MG Acetaminophen (Tylenol Tab) 1,000 mg Q8H PRN PO 08/07/17 11:15 09/06/17 11:14 08/08/17 08:46 1,000 MG Acetaminophen 100 ml @ 400 mls/hr Q8H PRN IV 08/07/17 11:15 09/06/17 11:14 08/07/17 21:44 400 MLS/HR Naloxone HCl (Narcan Inj) 0.1 mg Q5M PRN IV 08/07/17 11:15 09/06/17 11:14 Senna/Docusate Sodium (Senokot S Tab) 2 tab HS PO 08/07/17 21:00 09/06/17 20:59 08/10/17 21:46 2 TAB Sodium Biphosphate/ Sodium Phosphate (Fleet Enema) 132 ml ONE PRN [place] 08/07/17 11:15 09/06/17 11:14 Hydroxyzine HCl (Vistaril Tab) 25 mg Q8H PRN PO 08/07/17 11:15 09/06/17 11:14 Al Hydroxide/Mg Hydroxide (Maalox Susp) 30 ml Q6H PRN PO 08/07/17 11:15 09/06/17 11:14 Famotidine (Pepcid Tab) 20 mg Q12 PRN PO 08/07/17 11:15 09/06/17 11:14 Diphenhydramine HCl (Benadryl Cap) 25 mg Q6H PRN PO 08/07/17 11:15 09/06/17 11:14 Albuterol (Ventolin Hfa Inhaler) 2 puffs Q6H PRN INH 08/07/17 11:15 09/06/17 11:14 08/09/17 17:06 2 PUFFS Allopurinol (Zyloprim Tab) 100 mg QAM PO 08/08/17 09:00 09/07/17 08:59 08/11/17 08:52 100 MG Aspirin (Ecotrin Tab) 81 mg QPM PO 08/07/17 21:00 09/06/17 20:59 08/10/17 21:45 81 MG Atorvastatin Calcium (Lipitor Tab) 40 mg HS PO 08/07/17 21:00 09/06/17 20:59 08/10/17 21:45 40 MG Salmeterol Xinafoate/ Fluticasone (Advair Diskus 250/50 Inh) 1 puff BID INH 08/07/17 21:00 09/06/17 20:59 08/11/17 08:46 1 PUFF Fluticasone Propionate (Flonase Nasal [place]) 2 sprays DAILY PRN NA 08/07/17 11:15 09/06/17 11:14 Metoclopramide HCl (Reglan Tab) 10 mg TID PO 08/07/17 14:00 09/06/17 13:59 08/11/17 13:59 10 MG Metoprolol Succinate (Toprol Xl Tab) 50 mg BID PO 08/07/17 21:00 09/06/17 20:59 08/11/17 08:51 50 MG Mirabegron (Myrbetriq Er) 25 mg QAM PO 08/08/17 09:00 09/07/17 08:59 08/11/17 08:49 25 MG Nitroglycerin (Nitrostat Tab) 0.4 mg PRN PRN [place] 08/07/17 11:15 09/06/17 11:14 Oxybutynin Chloride (Ditropan Tab) 5 mg QAM PO 08/08/17 09:00 09/07/17 08:59 08/11/17 08:48 5 MG Pantoprazole Sodium (Protonix Tab) 40 mg QAM PO 08/08/17 09:00 09/07/17 08:59 08/11/17 08:50 40 MG Sertraline HCl (Zoloft Tab) 50 mg QPM PO 08/07/17 21:00 09/06/17 20:59 08/10/17 21:46 50 MG Sucralfate (Carafate Tab) 1 gm QID PO 08/07/17 13:00 09/06/17 12:59 08/11/17 17:14 1 GM Tamsulosin HCl (Flomax Cap) 0.4 mg QPM PO 08/07/17 21:00 09/06/17 20:59 08/10/17 21:47 0.4 MG Insulin Aspart (novoLOG ASPART) SLIDING SCALE If C... ACHS SC 08/07/17 17:15 09/06/17 17:14 08/11/17 18:26 7 UNITS Glucose (Glucose 40% Gel) 15-30 GRAMS 15 GRAMS... UD PRN PO 08/07/17 13:15 09/06/17 13:14 Glucose (Glucose Chew Tab) 4-8 Tablets 4 Tabl... UD PRN PO 08/07/17 13:15 09/06/17 13:14 Dextrose (Dextrose 50% 50ML Syringe) 25-50ML OF 50% DW IV FOR... UD PRN IV 08/07/17 13:15 09/06/17 13:14 Glucagon (Glucagon Inj) 1 mg UD PRN SQ 08/07/17 13:15 09/06/17 13:14 Isosorbide Mononitrate (Imdur Ext Rel Tab) 60 mg QAM PO 08/07/17 15:15 09/07/17 08:59 08/11/17 08:49 60 MG Insulin Glargine (Lantus Solostar Pen) BSG LANTUS SQ < ... BID SC 08/08/17 21:00 09/07/17 20:59 08/11/17 09:17 15 UNITS
[2017-08-11] MEDS: TAMSULOSIN HCL 0.4 MG CAP PO SCH (21:47)
[2017-08-11] MEDS: DOCUSATE SODIUM/SENNA 50/8.6MG TAB PO SCH (21:47)
[2017-08-11] MEDS: ASPIRIN 81 MG ECTAB PO SCH (21:48)
[2017-08-11] MEDS: SERTRALINE HCL 50 MG TAB PO SCH (21:48)
[2017-08-11] MEDS: ATORVASTATIN 40 MG TAB PO SCH (21:48)
[2017-08-11 22:55] VITALS: BP 120/82; PULSE 99; TEMP 37; O2SAT 96
[2017-08-12] VITALS (7 sets, daily range): BP systolic 124–139; BP diastolic 79–94; PULSE 79–95; TEMP 37–37.7; O2SAT 88–98
[2017-08-12] MEDS: POLYETHYLENE (MIRALAX) 17 GM PACK PO SCH ×4 (06:43→23:14)
[2017-08-12] MEDS: FLUTICASONE/SALMETEROL 250/50 (ADVAIR) 14 PUFF/1 INHALER INH SCH ×2 (08:18→21:12)
[2017-08-12] MEDS: OXYBUTYNIN CHLORIDE 5 MG TAB PO SCH (08:19)
[2017-08-12] MEDS: ALLOPURINOL 100 MG TAB PO SCH (08:19)
[2017-08-12] MEDS: ISOSORBIDE MONONITRATE 60 MG TABCR PO SCH (08:19)
[2017-08-12] MEDS: METOPROLOL SUCC 50MG EXT REL TAB PO SCH ×2 (08:20→21:11)
[2017-08-12] MEDS: PANTOprazole SOD 40 MG TAB PO SCH (08:20)
[2017-08-12] MEDS: MIRABEGRON ER 25 MG TAB PO SCH (08:20)
[2017-08-12] MEDS: SUCRALFATE 1 GM TAB PO SCH ×4 (08:21→21:10)
[2017-08-12] MEDS: METOCLOPRAMIDE HCL 10 MG TAB PO SCH ×3 (08:21→21:11)
[2017-08-12] MEDS: INSULIN GLARGINE SOLOSTAR 100 UNITS/ML 3 ML PEN SC SCH ×2 (08:25→21:18)
[2017-08-12] MEDS: OXYCODONE HCL IR 5 MG TAB (IMMEDIATE RELEASE) PO PRN ×3 (08:26→23:14)
[2017-08-12] MEDS: INSULIN ASPART 100 UNITS/ML 3 ML PEN SC SCH ×4 (09:01→21:00)
--- NOTE | 2017-08-12 09:15 | Discharge Summary ---
Orthopedic Discharge Summary Admission Date/Reason Aug 07, 2017 at 07:30 Lumbar Spinal Stenosis L2-S1. Discharge Date/Disposition Aug 12, 2017 Rehab Diagnosis Principal Diagnosis: Lumbar spinal stenosis Admission Physical Exam As per Admitting History & Physical. Hospital Course Patient underwent multilevel lumbar decompression fusion tolerated this well and went to the orthopedic floor postoperative. His postoperative course was uneventful. He progressed daily. GODFREY drain decreased appropriately. Subsequently was discharged to rehabilitation. Discharge orders and instructions found on the chart for further review. Discharge Instructions Please refer to the electronic Patient Visit Report (Discharge Instructions) for additional information.
[2017-08-12] MEDS ORDERED: BISACODYL 5 MG TABEC PO ONE (13:00)
--- NOTE | 2017-08-12 17:17 | Progress Note ---
Medicine Progress Note Date & Time of Visit: Aug 12, 2017 at 12:20 . Subjective CC: Postoperative follow-up visit for multiple medical problems. HPI: Feels a little better today. No chest pain. No cough, no SOB. Appetite improved. No nausea or vomiting. Last BM 2 days ago. Postoperative pain better. Neck pain better. ROS: General- no fever, no chills Resp- as noted above in HPI Cardiac- as noted above in HPI GI- as noted above in HPI - as noted above in HPI . Objective Last 8 Hrs Date Time Temp Pulse Resp B/P (MAP) Pulse Ox O2 Delivery O2 Flow Rate FiO2 08/12/17 15:10 Room Air 08/12/17 15:05 37.2 79 18 124/79 (94) 93 Room Air 08/12/17 13:49 95 Room Air Physical Exam: General- lying in bed; no distress Lungs- clear to auscultation; no respiratory distress Cardiovascular- irregular; III/ systolic murmur at base; no gallop; no JVD; trace pretibial edema Abdomen- + bowel sounds, distended, nontender Extremities- no cyanosis; no calf tenderness Neuro- alert, oriented Skin- warm; dry . Laboratory Results: Last 24 Hours Test 08/11/17 20:23 08/12/17 08:04 08/12/17 12:03 Bedside Glucose 173 mg/dl 199 mg/dl 176 mg/dl Assessment & Plan S/P LUMBAR DECOMPRESSION / FUSION POD # 5. CORONARY ARTERY DISEASE No anginal symptoms. Continue aspirin, metoprolol, isosorbide dinitrate, statin. AORTIC STENOSIS Hemodynamically stable. ATRIAL FIBRILLATION Continue metoprolol for rate control. Resume warfarin when OK from surgical perspective. HYPERTENSION BP's stable. Continue metoprolol and nitrates. COPD Oxygenating well on 1-2 L NC. Continue incentive spirometry + albuterol PRN. SLEEP APNEA CPAP ordered. Patient declined. CKD III Serum creatinine 1.37 --> 1.7. Toradol discontinued. Received IV fluids. Creatinine 2/2 was 1.43. Follow. DM TYPE 2 Usually well-controlled on metformin and glimepiride. Anticipate fluctuating blood sugars perioperatively due to surgery, decreased activity, dexamethasone, and need to hold oral agents. Hgb A1C 6.1. FBS this morning = 199. Lantus / NovoLog per protocol. Resume usual regimen at time of discharge. DYSLIPIDEMIA Continue atorvastatin. GOUT Continue allopurinol. BPH Continue tamsulosin. Watch for urinary retention. ANEMIA Hgb 13.5 --> --> 8.8 --> 9.5. Acute blood loss anemia secondary to surgery. No need for transfusion at this time. Follow. NECK PAIN Plain films showed degenerative changes without acute findings. Improved. Analgesics, heating pad PRN. VTE PROPHYLAXIS TEDS / SCD's per Ortho protocol. DISPOSITION Family Medicine follow-up with Dr. French. Thank you for this consultation. We will follow the patient with you during their hospital stay. You can reach a member of the [facility] Medicine Team 30/01 via pager @ [phone]. You can reach me via cell @ [phone]. . Current Inpatient Medications: Current Inpatient Medications Medications (Trade) Dose Ordered Sig/Jonathan Route Start Time Stop Time Status Last Admin Dose Admin Ondansetron HCl (Zofran Inj) 4 mg ONE PRN IV 08/07/17 07:00 Promethazine HCl 12.5 mg/Sodium Chloride 50.5 ml @ 202 mls/hr Q6H PRN IV 08/07/17 11:15 09/06/17 11:14 Ondansetron HCl (Zofran Inj) 4 mg Q6H PRN IV 08/07/17 11:15 09/06/17 11:14 08/08/17 06:04 4 MG Metoclopramide HCl (Reglan Inj) 10 mg Q6H PRN IV 08/07/17 11:15 09/06/17 11:14 Lorazepam (Ativan Tab) 0.5 mg Q8H PRN PO 08/07/17 11:15 09/06/17 11:14 Lorazepam 0.5 mg/ Syringe 0.25 ml @ 1 mls/min Q8H PRN IV 08/07/17 11:15 09/06/17 11:14 Pneumococcal Polysaccharide Vaccine 1 ea PRN PRN N/A 08/07/17 11:15 09/06/17 11:14 Influenza Virus Vacc Triv Types A&B 1 ea PRN PRN N/A 08/07/17 11:15 09/06/17 11:14 Polyethylene (Miralax Powder Packet) 17 gm Q6 PO 08/09/17 06:00 09/08/17 05:59 08/12/17 13:05 17 GM Bisacodyl (Dulcolax Supp) 10 mg DAILY PRN [place] 08/07/17 11:15 09/06/17 11:14 Magnesium Hydroxide (Milk Of Magnesia Susp) 30 ml DAILY PRN PO 08/07/17 11:15 09/06/17 11:14 Hydromorphone HCl (Dilaudid Inj) 0.5-1mg prn moder... Q3H PRN IV 08/08/17 06:01 08/22/17 06:00 08/09/17 11:17 1 MG Oxycodone HCl (Roxicodone Immediate Rel Tab) 5-10mg prn moderate to sev... Q4H PRN PO 08/08/17 06:00 08/22/17 05:59 08/12/17 15:19 10 MG Acetaminophen (Tylenol Tab) 1,000 mg Q8H PRN PO 08/07/17 11:15 09/06/17 11:14 08/08/17 08:46 1,000 MG Acetaminophen 100 ml @ 400 mls/hr Q8H PRN IV 08/07/17 11:15 09/06/17 11:14 08/07/17 21:44 400 MLS/HR Naloxone HCl (Narcan Inj) 0.1 mg Q5M PRN IV 08/07/17 11:15 09/06/17 11:14 Senna/Docusate Sodium (Senokot S Tab) 2 tab HS PO 08/07/17 21:00 09/06/17 20:59 08/11/17 21:47 2 TAB Sodium Biphosphate/ Sodium Phosphate (Fleet Enema) 132 ml ONE PRN [place] 08/07/17 11:15 09/06/17 11:14 Hydroxyzine HCl (Vistaril Tab) 25 mg Q8H PRN PO 08/07/17 11:15 09/06/17 11:14 Al Hydroxide/Mg Hydroxide (Maalox Susp) 30 ml Q6H PRN PO 08/07/17 11:15 09/06/17 11:14 Famotidine (Pepcid Tab) 20 mg Q12 PRN PO 08/07/17 11:15 09/06/17 11:14 Diphenhydramine HCl (Benadryl Cap) 25 mg Q6H PRN PO 08/07/17 11:15 09/06/17 11:14 Albuterol (Ventolin Hfa Inhaler) 2 puffs Q6H PRN INH 08/07/17 11:15 09/06/17 11:14 08/09/17 17:06 2 PUFFS Allopurinol (Zyloprim Tab) 100 mg QAM PO 08/08/17 09:00 09/07/17 08:59 08/12/17 08:19 100 MG Aspirin (Ecotrin Tab) 81 mg QPM PO 08/07/17 21:00 09/06/17 20:59 08/11/17 21:48 81 MG Atorvastatin Calcium (Lipitor Tab) 40 mg HS PO 08/07/17 21:00 09/06/17 20:59 08/11/17 21:48 40 MG Salmeterol Xinafoate/ Fluticasone (Advair Diskus 250/50 Inh) 1 puff BID INH 08/07/17 21:00 09/06/17 20:59 08/12/17 08:18 1 PUFF Fluticasone Propionate (Flonase Nasal [place]) 2 sprays DAILY PRN NA 08/07/17 11:15 09/06/17 11:14 Metoclopramide HCl (Reglan Tab) 10 mg TID PO 08/07/17 14:00 09/06/17 13:59 08/12/17 13:12 10 MG Metoprolol Succinate (Toprol Xl Tab) 50 mg BID PO 08/07/17 21:00 09/06/17 20:59 08/12/17 08:20 50 MG Mirabegron (Myrbetriq Er) 25 mg QAM PO 08/08/17 09:00 09/07/17 08:59 08/12/17 08:20 25 MG Nitroglycerin (Nitrostat Tab) 0.4 mg PRN PRN UT 08/07/17 11:15 09/06/17 11:14 Oxybutynin Chloride (Ditropan Tab) 5 mg QAM PO 08/08/17 09:00 09/07/17 08:59 08/12/17 08:19 5 MG Pantoprazole Sodium (Protonix Tab) 40 mg QAM PO 08/08/17 09:00 09/07/17 08:59 08/12/17 08:20 40 MG Sertraline HCl (Zoloft Tab) 50 mg QPM PO 08/07/17 21:00 09/06/17 20:59 08/11/17 21:48 50 MG Sucralfate (Carafate Tab) 1 gm QID PO 08/07/17 13:00 09/06/17 12:59 08/12/17 17:12 1 GM Tamsulosin HCl (Flomax Cap) 0.4 mg QPM PO 08/07/17 21:00 09/06/17 20:59 08/11/17 21:47 0.4 MG Insulin Aspart (novoLOG ASPART) SLIDING SCALE If C... ACHS SC 08/07/17 17:15 09/06/17 17:14 08/12/17 13:11 8 UNITS Glucose (Glucose 40% Gel) 15-30 GRAMS 15 GRAMS... UD PRN PO 08/07/17 13:15 09/06/17 13:14 Glucose (Glucose Chew Tab) 4-8 Tablets 4 Tabl... UD PRN PO 08/07/17 13:15 09/06/17 13:14 Dextrose (Dextrose 50% 50ML Syringe) 25-50ML OF 50% DW IV FOR... UD PRN IV 08/07/17 13:15 09/06/17 13:14 Glucagon (Glucagon Inj) 1 mg UD PRN SQ 08/07/17 13:15 09/06/17 13:14 Isosorbide Mononitrate (Imdur Ext Rel Tab) 60 mg QAM PO 08/07/17 15:15 09/07/17 08:59 08/12/17 08:19 60 MG Insulin Glargine (Lantus Solostar Pen) BSG LANTUS SQ < ... BID SC 08/08/17 21:00 09/07/17 20:59 08/12/17 08:25 20 UNITS
[2017-08-12] MEDS: SERTRALINE HCL 50 MG TAB PO SCH (21:09)
[2017-08-12] MEDS: TAMSULOSIN HCL 0.4 MG CAP PO SCH (21:09)
[2017-08-12] MEDS: ASPIRIN 81 MG ECTAB PO SCH (21:10)
[2017-08-12] MEDS: ATORVASTATIN 40 MG TAB PO SCH (21:10)
[2017-08-12] MEDS: DOCUSATE SODIUM/SENNA 50/8.6MG TAB PO SCH (21:11)
[2017-08-13] MEDS: POLYETHYLENE (MIRALAX) 17 GM PACK PO SCH ×2 (06:12→12:00)
[2017-08-13 07:16] VITALS: BP 141/82; PULSE 83; TEMP 36.6; O2SAT 98
--- NOTE | 2017-08-13 07:47 | Orthopedic Progress Note ---
Orthopedic Progress Note Date of Service Aug 13, 2017. Subjective Post OP Day: 5 Reports: feeling well Additional Notes: Patient has no complaints. No radicular leg pain. He is making slow progress with physical therapy. Yesterday he was imaging roughly 22 feet. He has had a bowel movement. GODFREY drain output is still 100 mL. It is supposed be discharged to have removed once he is discharged to rehabilitation. Rehabilitation is still waiting for bed availability. Objective calves soft nontender, N/V intact, dressing C/D/I, A&O x3, toes mobile Lumbar dressing is clean dry and intact. Lower extremities neurovascular intact. Calves are soft and nontender bilaterally. Date Time Temp Pulse Resp B/P (MAP) Pulse Ox O2 Delivery O2 Flow Rate FiO2 08/13/17 07:16 36.6 83 18 141/82 (101) 98 Nasal Cannula 2.0 08/12/17 23:10 Nasal Cannula 2.0 08/12/17 22:54 37.1 97 Nasal Cannula 2.0 08/12/17 22:50 37.7 95 20 139/83 (101) 88 Room Air 08/12/17 15:10 Room Air 08/12/17 15:05 37.2 79 18 124/79 (94) 93 Room Air 08/12/17 13:49 95 Room Air 08/12/17 08:17 37.0 84 16 133/94 (107) 98 Nasal Cannula 2.0 08/12/17 08:00 97 Assessment & Plan Assessment: Postoperative day #5 lumbar decompression fusion Plan: We'll continue physical therapy today. We are currently awaiting authorization and bed availability from [facility]. He may be discharged today if bed is available insurance has approved. We will DC GODFREY drain and dressing change prior. Inhouse Planning DVT Prophylaxis: PAULINE Calderons Discharge Planning Discharge Planning: rehab hospital DVT Prophylaxis: Yumiko
[2017-08-13] MEDS: METOPROLOL SUCC 50MG EXT REL TAB PO SCH ×2 (08:42→21:32)
[2017-08-13] MEDS: FLUTICASONE/SALMETEROL 250/50 (ADVAIR) 14 PUFF/1 INHALER INH SCH ×2 (08:42→21:31)
[2017-08-13] MEDS: METOCLOPRAMIDE HCL 10 MG TAB PO SCH ×3 (08:42→21:31)
[2017-08-13] MEDS: SUCRALFATE 1 GM TAB PO SCH ×4 (08:43→21:31)
[2017-08-13] MEDS: ALLOPURINOL 100 MG TAB PO SCH (08:43)
[2017-08-13] MEDS: OXYBUTYNIN CHLORIDE 5 MG TAB PO SCH (08:43)
[2017-08-13] MEDS: ISOSORBIDE MONONITRATE 60 MG TABCR PO SCH (08:43)
[2017-08-13] MEDS: PANTOprazole SOD 40 MG TAB PO SCH (08:43)
[2017-08-13] MEDS: MIRABEGRON ER 25 MG TAB PO SCH (08:43)
[2017-08-13] MEDS: INSULIN ASPART 100 UNITS/ML 3 ML PEN SC SCH ×4 (08:56→20:42)
[2017-08-13] MEDS: INSULIN GLARGINE SOLOSTAR 100 UNITS/ML 3 ML PEN SC SCH ×2 (08:56→21:50)
[2017-08-13 11:10] VITALS: O2SAT 93
[2017-08-13 15:03] VITALS: BP 121/78; PULSE 85; TEMP 36.7; O2SAT 92
[2017-08-13] MEDS ORDERED: NURSING VERBAL MED ORDER ONE (15:15)
--- NOTE | 2017-08-13 19:50 | Progress Note ---
Medicine Progress Note Date & Time of Visit: Aug 13, 2017 at 12:00 . Subjective CC: Postoperative follow-up visit for multiple medical problems. HPI: Gradually improving. No chest pain. No cough, no SOB. No nausea or vomiting. Passing flatus and stool. Postoperative pain better. ROS: General- no fever, no chills Resp- as noted above in HPI Cardiac- as noted above in HPI GI- as noted above in HPI - as noted above in HPI . Objective Last 8 Hrs Date Time Temp Pulse Resp B/P (MAP) Pulse Ox O2 Delivery O2 Flow Rate FiO2 08/13/17 15:20 Room Air 08/13/17 15:03 36.7 85 18 121/78 (92) 92 Room Air Physical Exam: General- lying in bed; no distress Lungs- clear to auscultation; no respiratory distress Cardiovascular- irregular; III/ systolic murmur at base; no gallop; no JVD; trace pretibial edema Abdomen- + bowel sounds, distended, nontender Extremities- no cyanosis; no calf tenderness Neuro- alert, oriented Skin- warm; dry . Laboratory Results: Last 24 Hours Test 08/12/17 20:22 08/13/17 08:07 08/13/17 11:59 08/13/17 17:09 Bedside Glucose 153 mg/dl 148 mg/dl 167 mg/dl 155 mg/dl Assessment & Plan S/P LUMBAR DECOMPRESSION / FUSION POD # 6. CORONARY ARTERY DISEASE No anginal symptoms. Continue aspirin, metoprolol, isosorbide dinitrate, statin. AORTIC STENOSIS Hemodynamically stable. ATRIAL FIBRILLATION Continue metoprolol for rate control. Resume warfarin when OK from surgical perspective. HYPERTENSION BP's stable. Continue metoprolol and nitrates. COPD Oxygenating well on 1-2 L NC. Continue incentive spirometry + albuterol PRN. SLEEP APNEA CPAP ordered. Patient declined. CKD III Serum creatinine 1.37 --> 1.7. Toradol discontinued. Received IV fluids. Creatinine 2/2 was 1.43. Follow. DM TYPE 2 Usually well-controlled on metformin and glimepiride. Anticipate fluctuating blood sugars perioperatively due to surgery, decreased activity, dexamethasone, and need to hold oral agents. Hgb A1C 6.1. FBS this morning = 148. Lantus / NovoLog per protocol. Resume usual regimen at time of discharge. DYSLIPIDEMIA Continue atorvastatin. GOUT Continue allopurinol. BPH Continue tamsulosin. Watch for urinary retention. ANEMIA Hgb 13.5 --> --> 8.8 --> 9.5. Acute blood loss anemia secondary to surgery. No need for transfusion at this time. Follow. NECK PAIN Plain films showed degenerative changes without acute findings. Improved. Analgesics, heating pad PRN. VTE PROPHYLAXIS TEDS / SCD's per Ortho protocol. DISPOSITION Family Medicine follow-up with Dr. French. Thank you for this consultation. We will follow the patient with you during their hospital stay. You can reach a member of the [facility] Medicine Team 30/01 via pager @ [phone]. You can reach me via cell @ [phone]. . Current Inpatient Medications: Current Inpatient Medications Medications (Trade) Dose Ordered Sig/Jonathan Route Start Time Stop Time Status Last Admin Dose Admin Ondansetron HCl (Zofran Inj) 4 mg ONE PRN IV 08/07/17 07:00 Promethazine HCl 12.5 mg/Sodium Chloride 50.5 ml @ 202 mls/hr Q6H PRN IV 08/07/17 11:15 09/06/17 11:14 Ondansetron HCl (Zofran Inj) 4 mg Q6H PRN IV 08/07/17 11:15 09/06/17 11:14 08/08/17 06:04 4 MG Metoclopramide HCl (Reglan Inj) 10 mg Q6H PRN IV 08/07/17 11:15 09/06/17 11:14 Lorazepam (Ativan Tab) 0.5 mg Q8H PRN PO 08/07/17 11:15 09/06/17 11:14 Lorazepam 0.5 mg/ Syringe 0.25 ml @ 1 mls/min Q8H PRN IV 08/07/17 11:15 09/06/17 11:14 Pneumococcal Polysaccharide Vaccine 1 ea PRN PRN N/A 08/07/17 11:15 09/06/17 11:14 Influenza Virus Vacc Triv Types A&B 1 ea PRN PRN N/A 08/07/17 11:15 09/06/17 11:14 Bisacodyl (Dulcolax Supp) 10 mg DAILY PRN [place] 08/07/17 11:15 09/06/17 11:14 Magnesium Hydroxide (Milk Of Magnesia Susp) 30 ml DAILY PRN PO 08/07/17 11:15 09/06/17 11:14 Hydromorphone HCl (Dilaudid Inj) 0.5-1mg prn moder... Q3H PRN IV 08/08/17 06:01 08/22/17 06:00 08/09/17 11:17 1 MG Oxycodone HCl (Roxicodone Immediate Rel Tab) 5-10mg prn moderate to sev... Q4H PRN PO 08/08/17 06:00 08/22/17 05:59 08/12/17 23:14 10 MG Acetaminophen (Tylenol Tab) 1,000 mg Q8H PRN PO 08/07/17 11:15 09/06/17 11:14 08/08/17 08:46 1,000 MG Acetaminophen 100 ml @ 400 mls/hr Q8H PRN IV 08/07/17 11:15 09/06/17 11:14 08/07/17 21:44 400 MLS/HR Naloxone HCl (Narcan Inj) 0.1 mg Q5M PRN IV 08/07/17 11:15 09/06/17 11:14 Senna/Docusate Sodium (Senokot S Tab) 2 tab HS PO 08/07/17 21:00 09/06/17 20:59 08/12/17 21:11 2 TAB Sodium Biphosphate/ Sodium Phosphate (Fleet Enema) 132 ml ONE PRN [place] 08/07/17 11:15 09/06/17 11:14 Hydroxyzine HCl (Vistaril Tab) 25 mg Q8H PRN PO 08/07/17 11:15 09/06/17 11:14 Al Hydroxide/Mg Hydroxide (Maalox Susp) 30 ml Q6H PRN PO 08/07/17 11:15 09/06/17 11:14 Famotidine (Pepcid Tab) 20 mg Q12 PRN PO 08/07/17 11:15 09/06/17 11:14 Diphenhydramine HCl (Benadryl Cap) 25 mg Q6H PRN PO 08/07/17 11:15 09/06/17 11:14 Albuterol (Ventolin Hfa Inhaler) 2 puffs Q6H PRN INH 08/07/17 11:15 09/06/17 11:14 08/09/17 17:06 2 PUFFS Allopurinol (Zyloprim Tab) 100 mg QAM PO 08/08/17 09:00 09/07/17 08:59 08/13/17 08:43 100 MG Aspirin (Ecotrin Tab) 81 mg QPM PO 08/07/17 21:00 09/06/17 20:59 08/12/17 21:10 81 MG Atorvastatin Calcium (Lipitor Tab) 40 mg HS PO 08/07/17 21:00 09/06/17 20:59 08/12/17 21:10 40 MG Salmeterol Xinafoate/ Fluticasone (Advair Diskus 250/50 Inh) 1 puff BID INH 08/07/17 21:00 09/06/17 20:59 08/13/17 08:42 1 PUFF Fluticasone Propionate (Flonase Nasal [place]) 2 sprays DAILY PRN NA 08/07/17 11:15 09/06/17 11:14 Metoclopramide HCl (Reglan Tab) 10 mg TID PO 08/07/17 14:00 09/06/17 13:59 08/13/17 13:10 10 MG Metoprolol Succinate (Toprol Xl Tab) 50 mg BID PO 08/07/17 21:00 09/06/17 20:59 08/13/17 08:42 50 MG Mirabegron (Myrbetriq Er) 25 mg QAM PO 08/08/17 09:00 09/07/17 08:59 08/13/17 08:43 25 MG Nitroglycerin (Nitrostat Tab) 0.4 mg PRN PRN [place] 08/07/17 11:15 09/06/17 11:14 Oxybutynin Chloride (Ditropan Tab) 5 mg QAM PO 08/08/17 09:00 09/07/17 08:59 08/13/17 08:43 5 MG Pantoprazole Sodium (Protonix Tab) 40 mg QAM PO 08/08/17 09:00 09/07/17 08:59 08/13/17 08:43 40 MG Sertraline HCl (Zoloft Tab) 50 mg QPM PO 08/07/17 21:00 09/06/17 20:59 08/12/17 21:09 50 MG Sucralfate (Carafate Tab) 1 gm QID PO 08/07/17 13:00 09/06/17 12:59 08/13/17 18:38 1 GM Tamsulosin HCl (Flomax Cap) 0.4 mg QPM PO 08/07/17 21:00 09/06/17 20:59 08/12/17 21:09 0.4 MG Insulin Aspart (novoLOG ASPART) SLIDING SCALE If C... ACHS SC 08/07/17 17:15 09/06/17 17:14 08/13/17 18:39 10 UNITS Glucose (Glucose 40% Gel) 15-30 GRAMS 15 GRAMS... UD PRN PO 08/07/17 13:15 09/06/17 13:14 Glucose (Glucose Chew Tab) 4-8 Tablets 4 Tabl... UD PRN PO 08/07/17 13:15 09/06/17 13:14 Dextrose (Dextrose 50% 50ML Syringe) 25-50ML OF 50% DW IV FOR... UD PRN IV 08/07/17 13:15 09/06/17 13:14 Glucagon (Glucagon Inj) 1 mg UD PRN SQ 08/07/17 13:15 09/06/17 13:14 Isosorbide Mononitrate (Imdur Ext Rel Tab) 60 mg QAM PO 08/07/17 15:15 09/07/17 08:59 08/13/17 08:43 60 MG Insulin Glargine (Lantus Solostar Pen) BSG LANTUS SQ < ... BID SC 08/08/17 21:00 09/07/17 20:59 08/13/17 08:56 20 UNITS
[2017-08-13] MEDS: SERTRALINE HCL 50 MG TAB PO SCH (21:31)
[2017-08-13] MEDS: TAMSULOSIN HCL 0.4 MG CAP PO SCH (21:31)
[2017-08-13] MEDS: ATORVASTATIN 40 MG TAB PO SCH (21:31)
[2017-08-13] MEDS: ASPIRIN 81 MG ECTAB PO SCH (21:31)
[2017-08-13] MEDS: DOCUSATE SODIUM/SENNA 50/8.6MG TAB PO SCH (21:31)
[2017-08-13 23:34] VITALS: BP 125/78; PULSE 75; TEMP 36.8; O2SAT 97
[2017-08-14] VITALS (10 sets, daily range): BP systolic 93–150; BP diastolic 68–94; PULSE 86–95; TEMP 36.4–37.1; O2SAT 90–98
[2017-08-14] MEDS: INSULIN ASPART 100 UNITS/ML 3 ML PEN SC SCH ×4 (07:57→20:49)
[2017-08-14] MEDS: INSULIN GLARGINE SOLOSTAR 100 UNITS/ML 3 ML PEN SC SCH ×2 (08:01→21:01)
[2017-08-14] MEDS: FLUTICASONE/SALMETEROL 250/50 (ADVAIR) 14 PUFF/1 INHALER INH SCH ×2 (08:24→20:50)
[2017-08-14] MEDS: OXYBUTYNIN CHLORIDE 5 MG TAB PO SCH (08:30)
[2017-08-14] MEDS: SUCRALFATE 1 GM TAB PO SCH ×4 (08:30→20:50)
[2017-08-14] MEDS: PANTOprazole SOD 40 MG TAB PO SCH (08:31)
[2017-08-14] MEDS: MIRABEGRON ER 25 MG TAB PO SCH (08:31)
[2017-08-14] MEDS: ALLOPURINOL 100 MG TAB PO SCH (08:32)
[2017-08-14] MEDS: METOCLOPRAMIDE HCL 10 MG TAB PO SCH ×3 (08:32→20:50)
[2017-08-14] MEDS: OXYCODONE HCL IR 5 MG TAB (IMMEDIATE RELEASE) PO PRN (08:35)
[2017-08-14] MEDS: ISOSORBIDE MONONITRATE 60 MG TABCR PO SCH (09:34)
[2017-08-14] MEDS: METOPROLOL SUCC 50MG EXT REL TAB PO SCH ×2 (09:35→20:50)
--- NOTE | 2017-08-14 13:39 | Progress Note ---
Progress Note Date of Service Aug 14, 2017. Progress Note Patient's back pain is improving. Leg strength and ability to ambulate steadily improving daily. Vital signs are stable. GODFREY drain decreasing appropriately. We are currently awaiting disposition. Again he would be best served in a rehabilitation or nursing facility.
[2017-08-14] MEDS: SERTRALINE HCL 50 MG TAB PO SCH (20:50)
[2017-08-14] MEDS: ATORVASTATIN 40 MG TAB PO SCH (20:50)
[2017-08-14] MEDS: ASPIRIN 81 MG ECTAB PO SCH (20:50)
[2017-08-14] MEDS: DOCUSATE SODIUM/SENNA 50/8.6MG TAB PO SCH (20:51)
[2017-08-14] MEDS: TAMSULOSIN HCL 0.4 MG CAP PO SCH (20:51)
[2017-08-15 00:05] VITALS: O2SAT 93
[2017-08-15] MEDS: OXYCODONE HCL IR 5 MG TAB (IMMEDIATE RELEASE) PO PRN ×2 (00:16→08:37)
--- NOTE | 2017-08-15 04:05 | Progress Note ---
Medicine Progress Note Date & Time of Visit: Aug 14, 2017 . Subjective CC: Postoperative follow-up visit for multiple medical problems. HPI: Better. Making progress in PT. No chest pain. No cough, no SOB. No nausea or vomiting. Passing flatus and stool. Postoperative pain better. ROS: General- no fever, no chills Resp- as noted above in HPI Cardiac- as noted above in HPI GI- as noted above in HPI - as noted above in HPI . Objective VS @ 09:32 36.7 90 20 115/81 . Physical Exam: General- lying in bed; no distress Lungs- clear to auscultation; no respiratory distress Cardiovascular- irregular; rate in 90's; III/ systolic murmur at base; no gallop; no JVD; trace pretibial edema Abdomen- + bowel sounds, distended, nontender Extremities- no cyanosis; no calf tenderness Neuro- alert, oriented Skin- warm; dry . Laboratory Results: Last 24 Hours Test 08/14/17 07:46 08/14/17 12:24 08/14/17 16:48 08/14/17 20:45 Bedside Glucose 187 mg/dl 110 mg/dl 130 mg/dl 134 mg/dl Assessment & Plan S/P LUMBAR DECOMPRESSION / FUSION POD # 7. CORONARY ARTERY DISEASE No anginal symptoms. Continue aspirin, metoprolol, isosorbide dinitrate, statin. AORTIC STENOSIS Hemodynamically stable. ATRIAL FIBRILLATION Continue metoprolol for rate control. Resume warfarin when OK from surgical perspective. HYPERTENSION BP this morning 115/81. Continue metoprolol and nitrates. COPD Oxygenating well on 1-2 L NC. Continue incentive spirometry + albuterol PRN. SLEEP APNEA CPAP ordered. Patient declined. CKD III Serum creatinine 1.37 --> 1.7. Toradol discontinued. Received IV fluids. Creatinine 2/2 was 1.43. Follow. DM TYPE 2 Usually well-controlled on metformin and glimepiride. Anticipate fluctuating blood sugars perioperatively due to surgery, decreased activity, dexamethasone, and need to hold oral agents. Hgb A1C 6.1. FBS this morning = 187. Lantus / NovoLog per protocol. Resume usual regimen at time of discharge. DYSLIPIDEMIA Continue atorvastatin. GOUT Continue allopurinol. BPH Continue tamsulosin. Watch for urinary retention. ANEMIA Hgb 13.5 --> --> 8.8 --> 9.5. Acute blood loss anemia secondary to surgery. No need for transfusion at this time. Follow. VTE PROPHYLAXIS TEDS / SCD's per Ortho protocol. DISPOSITION Family Medicine follow-up with Dr. French. Thank you for this consultation. We will follow the patient with you during their hospital stay. You can reach a member of the [facility] Medicine Team 30/01 via pager @ [phone]. You can reach me via cell @ [phone]. . Current Inpatient Medications: Current Inpatient Medications Medications (Trade) Dose Ordered Sig/Jonathan Route Start Time Stop Time Status Last Admin Dose Admin Ondansetron HCl (Zofran Inj) 4 mg ONE PRN IV 08/07/17 07:00 Promethazine HCl 12.5 mg/Sodium Chloride 50.5 ml @ 202 mls/hr Q6H PRN IV 08/07/17 11:15 09/06/17 11:14 Ondansetron HCl (Zofran Inj) 4 mg Q6H PRN IV 08/07/17 11:15 09/06/17 11:14 08/08/17 06:04 4 MG Metoclopramide HCl (Reglan Inj) 10 mg Q6H PRN IV 08/07/17 11:15 09/06/17 11:14 Lorazepam (Ativan Tab) 0.5 mg Q8H PRN PO 08/07/17 11:15 09/06/17 11:14 Lorazepam 0.5 mg/ Syringe 0.25 ml @ 1 mls/min Q8H PRN IV 08/07/17 11:15 09/06/17 11:14 Pneumococcal Polysaccharide Vaccine 1 ea PRN PRN N/A 08/07/17 11:15 09/06/17 11:14 Influenza Virus Vacc Triv Types A&B 1 ea PRN PRN N/A 08/07/17 11:15 09/06/17 11:14 Bisacodyl (Dulcolax Supp) 10 mg DAILY PRN [place] 08/07/17 11:15 09/06/17 11:14 Magnesium Hydroxide (Milk Of Magnesia Susp) 30 ml DAILY PRN PO 08/07/17 11:15 09/06/17 11:14 Hydromorphone HCl (Dilaudid Inj) 0.5-1mg prn moder... Q3H PRN IV 08/08/17 06:01 08/22/17 06:00 08/09/17 11:17 1 MG Oxycodone HCl (Roxicodone Immediate Rel Tab) 5-10mg prn moderate to sev... Q4H PRN PO 08/08/17 06:00 08/22/17 05:59 08/15/17 00:16 5 MG Acetaminophen (Tylenol Tab) 1,000 mg Q8H PRN PO 08/07/17 11:15 09/06/17 11:14 08/08/17 08:46 1,000 MG Acetaminophen 100 ml @ 400 mls/hr Q8H PRN IV 08/07/17 11:15 09/06/17 11:14 08/07/17 21:44 400 MLS/HR Naloxone HCl (Narcan Inj) 0.1 mg Q5M PRN IV 08/07/17 11:15 09/06/17 11:14 Senna/Docusate Sodium (Senokot S Tab) 2 tab HS PO 08/07/17 21:00 09/06/17 20:59 08/14/17 20:51 2 TAB Sodium Biphosphate/ Sodium Phosphate (Fleet Enema) 132 ml ONE PRN [place] 08/07/17 11:15 09/06/17 11:14 Hydroxyzine HCl (Vistaril Tab) 25 mg Q8H PRN PO 08/07/17 11:15 09/06/17 11:14 Al Hydroxide/Mg Hydroxide (Maalox Susp) 30 ml Q6H PRN PO 08/07/17 11:15 09/06/17 11:14 Famotidine (Pepcid Tab) 20 mg Q12 PRN PO 08/07/17 11:15 09/06/17 11:14 Diphenhydramine HCl (Benadryl Cap) 25 mg Q6H PRN PO 08/07/17 11:15 09/06/17 11:14 Albuterol (Ventolin Hfa Inhaler) 2 puffs Q6H PRN INH 08/07/17 11:15 09/06/17 11:14 08/09/17 17:06 2 PUFFS Allopurinol (Zyloprim Tab) 100 mg QAM PO 08/08/17 09:00 09/07/17 08:59 08/14/17 08:32 100 MG Aspirin (Ecotrin Tab) 81 mg QPM PO 08/07/17 21:00 09/06/17 20:59 08/14/17 20:50 81 MG Atorvastatin Calcium (Lipitor Tab) 40 mg HS PO 08/07/17 21:00 09/06/17 20:59 08/14/17 20:50 40 MG Salmeterol Xinafoate/ Fluticasone (Advair Diskus 250/50 Inh) 1 puff BID INH 08/07/17 21:00 09/06/17 20:59 08/14/17 20:50 1 PUFF Fluticasone Propionate (Flonase Nasal [place]) 2 sprays DAILY PRN NA 08/07/17 11:15 09/06/17 11:14 Metoclopramide HCl (Reglan Tab) 10 mg TID PO 08/07/17 14:00 09/06/17 13:59 08/14/17 20:50 10 MG Metoprolol Succinate (Toprol Xl Tab) 50 mg BID PO 08/07/17 21:00 09/06/17 20:59 08/14/17 20:50 50 MG Mirabegron (Myrbetriq Er) 25 mg QAM PO 08/08/17 09:00 09/07/17 08:59 08/14/17 08:31 25 MG Nitroglycerin (Nitrostat Tab) 0.4 mg PRN PRN [place] 08/07/17 11:15 09/06/17 11:14 Oxybutynin Chloride (Ditropan Tab) 5 mg QAM PO 08/08/17 09:00 09/07/17 08:59 08/14/17 08:30 5 MG Pantoprazole Sodium (Protonix Tab) 40 mg QAM PO 08/08/17 09:00 09/07/17 08:59 08/14/17 08:31 40 MG Sertraline HCl (Zoloft Tab) 50 mg QPM PO 08/07/17 21:00 09/06/17 20:59 08/14/17 20:50 50 MG Sucralfate (Carafate Tab) 1 gm QID PO 08/07/17 13:00 2/28/18 12:59 08/14/17 20:50 1 GM Tamsulosin HCl (Flomax Cap) 0.4 mg QPM PO 08/07/17 21:00 09/06/17 20:59 08/14/17 20:51 0.4 MG Insulin Aspart (novoLOG ASPART) SLIDING SCALE If C... ACHS SC 08/07/17 17:15 09/06/17 17:14 08/14/17 13:03 4 UNITS Glucose (Glucose 40% Gel) 15-30 GRAMS 15 GRAMS... UD PRN PO 08/07/17 13:15 09/06/17 13:14 Glucose (Glucose Chew Tab) 4-8 Tablets 4 Tabl... UD PRN PO 08/07/17 13:15 09/06/17 13:14 Dextrose (Dextrose 50% 50ML Syringe) 25-50ML OF 50% DW IV FOR... UD PRN IV 08/07/17 13:15 09/06/17 13:14 Glucagon (Glucagon Inj) 1 mg UD PRN SQ 08/07/17 13:15 09/06/17 13:14 Isosorbide Mononitrate (Imdur Ext Rel Tab) 60 mg QAM PO 08/07/17 15:15 09/07/17 08:59 08/14/17 09:34 60 MG Insulin Glargine (Lantus Solostar Pen) BSG LANTUS SQ < ... BID SC 08/08/17 21:00 09/07/17 20:59 08/14/17 21:01 16 UNITS
[2017-08-15] MEDS: ACETAMINOPHEN 500 MG TAB PO PRN (06:19)
[2017-08-15 07:43] VITALS: BP 149/88; PULSE 79; TEMP 37; O2SAT 95
[2017-08-15] MEDS: PANTOprazole SOD 40 MG TAB PO SCH (08:30)
[2017-08-15] MEDS: SUCRALFATE 1 GM TAB PO SCH ×2 (08:30→14:05)
[2017-08-15] MEDS: FLUTICASONE/SALMETEROL 250/50 (ADVAIR) 14 PUFF/1 INHALER INH SCH (08:30)
[2017-08-15] MEDS: METOPROLOL SUCC 50MG EXT REL TAB PO SCH (08:30)
[2017-08-15] MEDS: OXYBUTYNIN CHLORIDE 5 MG TAB PO SCH (08:30)
[2017-08-15] MEDS: ISOSORBIDE MONONITRATE 60 MG TABCR PO SCH (08:30)
[2017-08-15] MEDS: METOCLOPRAMIDE HCL 10 MG TAB PO SCH ×2 (08:30→14:05)
[2017-08-15] MEDS: MIRABEGRON ER 25 MG TAB PO SCH (08:30)
[2017-08-15] MEDS: ALLOPURINOL 100 MG TAB PO SCH (08:30)
[2017-08-15] MEDS: INSULIN GLARGINE SOLOSTAR 100 UNITS/ML 3 ML PEN SC SCH (08:33)
[2017-08-15] MEDS: INSULIN ASPART 100 UNITS/ML 3 ML PEN SC SCH ×2 (09:44→14:09)
--- NOTE | 2017-08-15 10:17 | Progress Note ---
Progress Note Date of Service Aug 15, 2017. Progress Note Patient is sitting in a chair at the bedside. He states his back pain is controlled. Vital signs are stable. His good strength testing lower extremity' s. Assessment status post multilevel lumbar decompression fusion. Plan this time he is to go to rehabilitation today.
--- NOTE | 2017-08-15 10:48 | Progress Note ---
Medicine Progress Note Date & Time of Visit: Aug 15, 2017 at 10:35 . Subjective CC: Postoperative follow-up visit for multiple medical problems. HPI: Doing well. Ambulating with walker in PT. No chest pain. No cough, no SOB. No nausea or vomiting. Passing flatus and stool. Postoperative pain better. ROS: General- no fever, no chills Resp- as noted above in HPI Cardiac- as noted above in HPI GI- as noted above in HPI - as noted above in HPI . Objective Last 8 Hrs Date Time Temp Pulse Resp B/P (MAP) Pulse Ox O2 Delivery O2 Flow Rate FiO2 08/15/17 09:09 Room Air 08/15/17 07:43 37.0 79 16 149/88 (108) 95 Physical Exam: General- sitting in chair; no distress Lungs- clear to auscultation; no respiratory distress Cardiovascular- irregular; rate in 90's; III/ systolic murmur at base; no gallop; no JVD; trace - 1+ pretibial edema Abdomen- + bowel sounds, distended, nontender Extremities- no cyanosis; no calf tenderness; TEDS applied Neuro- alert, oriented Skin- warm; dry . Laboratory Results: Last 24 Hours Test 08/14/17 12:24 08/14/17 16:48 08/14/17 20:45 08/15/17 08:00 Bedside Glucose 110 mg/dl 130 mg/dl 134 mg/dl 158 mg/dl Assessment & Plan S/P LUMBAR DECOMPRESSION / FUSION POD # 8. CORONARY ARTERY DISEASE No anginal symptoms. Continue aspirin, metoprolol, isosorbide dinitrate, statin. AORTIC STENOSIS Hemodynamically stable. ATRIAL FIBRILLATION Continue metoprolol for rate control. Resume warfarin when OK from surgical perspective. HYPERTENSION BP this morning 149/88. Continue metoprolol and nitrates. COPD Oxygenating well on RA. Continue incentive spirometry + albuterol PRN. SLEEP APNEA CPAP ordered. Patient declined. CKD III Serum creatinine 1.37 --> 1.7. Toradol discontinued. Received IV fluids. Creatinine 2/2 was 1.43. Follow. DM TYPE 2 Usually well-controlled on metformin and glimepiride. Anticipate fluctuating blood sugars perioperatively due to surgery, decreased activity, dexamethasone, and need to hold oral agents. Hgb A1C 6.1. FBS this morning = 158. Lantus / NovoLog per protocol. Resume usual regimen at time of discharge. DYSLIPIDEMIA Continue atorvastatin. GOUT Continue allopurinol. BPH Continue tamsulosin. Watch for urinary retention. ANEMIA Hgb 13.5 --> --> 8.8 --> 9.5. Acute blood loss anemia secondary to surgery. No need for transfusion at this time. Follow. VTE PROPHYLAXIS TEDS / SCD's per Ortho protocol. DISPOSITION Family Medicine follow-up with Dr. French. Thank you for this consultation. We will follow the patient with you during their hospital stay. You can reach a member of the [facility] Medicine Team 30/01 via pager @ [phone]. You can reach me via cell @ [phone]. . Current Inpatient Medications: Current Inpatient Medications Medications (Trade) Dose Ordered Sig/Jonathan Route Start Time Stop Time Status Last Admin Dose Admin Ondansetron HCl (Zofran Inj) 4 mg ONE PRN IV 08/07/17 07:00 Promethazine HCl 12.5 mg/Sodium Chloride 50.5 ml @ 202 mls/hr Q6H PRN IV 08/07/17 11:15 09/06/17 11:14 Ondansetron HCl (Zofran Inj) 4 mg Q6H PRN IV 08/07/17 11:15 09/06/17 11:14 08/08/17 06:04 4 MG Metoclopramide HCl (Reglan Inj) 10 mg Q6H PRN IV 08/07/17 11:15 09/06/17 11:14 Lorazepam (Ativan Tab) 0.5 mg Q8H PRN PO 08/07/17 11:15 09/06/17 11:14 Lorazepam 0.5 mg/ Syringe 0.25 ml @ 1 mls/min Q8H PRN IV 08/07/17 11:15 09/06/17 11:14 Pneumococcal Polysaccharide Vaccine 1 ea PRN PRN N/A 08/07/17 11:15 09/06/17 11:14 Influenza Virus Vacc Triv Types A&B 1 ea PRN PRN N/A 08/07/17 11:15 09/06/17 11:14 Bisacodyl (Dulcolax Supp) 10 mg DAILY PRN [place] 08/07/17 11:15 09/06/17 11:14 Magnesium Hydroxide (Milk Of Magnesia Susp) 30 ml DAILY PRN PO 08/07/17 11:15 09/06/17 11:14 Hydromorphone HCl (Dilaudid Inj) 0.5-1mg prn moder... Q3H PRN IV 08/08/17 06:01 08/22/17 06:00 08/09/17 11:17 1 MG Oxycodone HCl (Roxicodone Immediate Rel Tab) 5-10mg prn moderate to sev... Q4H PRN PO 08/08/17 06:00 08/22/17 05:59 08/15/17 08:37 10 MG Acetaminophen (Tylenol Tab) 1,000 mg Q8H PRN PO 08/07/17 11:15 09/06/17 11:14 08/15/17 06:19 1,000 MG Acetaminophen 100 ml @ 400 mls/hr Q8H PRN IV 08/07/17 11:15 09/06/17 11:14 08/07/17 21:44 400 MLS/HR Naloxone HCl (Narcan Inj) 0.1 mg Q5M PRN IV 08/07/17 11:15 09/06/17 11:14 Senna/Docusate Sodium (Senokot S Tab) 2 tab HS PO 08/07/17 21:00 09/06/17 20:59 08/14/17 20:51 2 TAB Sodium Biphosphate/ Sodium Phosphate (Fleet Enema) 132 ml ONE PRN [place] 08/07/17 11:15 09/06/17 11:14 Hydroxyzine HCl (Vistaril Tab) 25 mg Q8H PRN PO 08/07/17 11:15 09/06/17 11:14 Al Hydroxide/Mg Hydroxide (Maalox Susp) 30 ml Q6H PRN PO 08/07/17 11:15 09/06/17 11:14 Famotidine (Pepcid Tab) 20 mg Q12 PRN PO 08/07/17 11:15 09/06/17 11:14 Diphenhydramine HCl (Benadryl Cap) 25 mg Q6H PRN PO 08/07/17 11:15 09/06/17 11:14 Albuterol (Ventolin Hfa Inhaler) 2 puffs Q6H PRN INH 08/07/17 11:15 09/06/17 11:14 08/09/17 17:06 2 PUFFS Allopurinol (Zyloprim Tab) 100 mg QAM PO 08/08/17 09:00 09/07/17 08:59 08/15/17 08:30 100 MG Aspirin (Ecotrin Tab) 81 mg QPM PO 08/07/17 21:00 09/06/17 20:59 08/14/17 20:50 81 MG Atorvastatin Calcium (Lipitor Tab) 40 mg HS PO 08/07/17 21:00 09/06/17 20:59 08/14/17 20:50 40 MG Salmeterol Xinafoate/ Fluticasone (Advair Diskus 250/50 Inh) 1 puff BID INH 08/07/17 21:00 09/06/17 20:59 08/15/17 08:30 1 PUFF Fluticasone Propionate (Flonase Nasal [place]) 2 sprays DAILY PRN NA 08/07/17 11:15 09/06/17 11:14 Metoclopramide HCl (Reglan Tab) 10 mg TID PO 08/07/17 14:00 09/06/17 13:59 08/15/17 08:30 10 MG Metoprolol Succinate (Toprol Xl Tab) 50 mg BID PO 08/07/17 21:00 09/06/17 20:59 08/15/17 08:30 50 MG Mirabegron (Myrbetriq Er) 25 mg QAM PO 08/08/17 09:00 09/07/17 08:59 08/15/17 08:30 25 MG Nitroglycerin (Nitrostat Tab) 0.4 mg PRN PRN [place] 08/07/17 11:15 09/06/17 11:14 Oxybutynin Chloride (Ditropan Tab) 5 mg QAM PO 08/08/17 09:00 09/07/17 08:59 08/15/17 08:30 5 MG Pantoprazole Sodium (Protonix Tab) 40 mg QAM PO 08/08/17 09:00 09/07/17 08:59 08/15/17 08:30 40 MG Sertraline HCl (Zoloft Tab) 50 mg QPM PO 1/29/18 21:00 09/06/17 20:59 08/14/17 20:50 50 MG Sucralfate (Carafate Tab) 1 gm QID PO 08/07/17 13:00 09/06/17 12:59 08/15/17 08:30 1 GM Tamsulosin HCl (Flomax Cap) 0.4 mg QPM PO 08/07/17 21:00 09/06/17 20:59 08/14/17 20:51 0.4 MG Insulin Aspart (novoLOG ASPART) SLIDING SCALE If C... ACHS SC 08/07/17 17:15 09/06/17 17:14 08/15/17 09:44 8 UNITS Glucose (Glucose 40% Gel) 15-30 GRAMS 15 GRAMS... UD PRN PO 08/07/17 13:15 09/06/17 13:14 Glucose (Glucose Chew Tab) 4-8 Tablets 4 Tabl... UD PRN PO 08/07/17 13:15 09/06/17 13:14 Dextrose (Dextrose 50% 50ML Syringe) 25-50ML OF 50% DW IV FOR... UD PRN IV 08/07/17 13:15 09/06/17 13:14 Glucagon (Glucagon Inj) 1 mg UD PRN SQ 08/07/17 13:15 09/06/17 13:14 Isosorbide Mononitrate (Imdur Ext Rel Tab) 60 mg QAM PO 08/07/17 15:15 09/07/17 08:59 08/15/17 08:30 60 MG Insulin Glargine (Lantus Solostar Pen) BSG LANTUS SQ < ... BID SC 08/08/17 21:00 09/07/17 20:59 08/15/17 08:33 20 UNITS
== END 2017-08-15 15:47 | DRG 454 ==
LOC: C.ACU 06:01 → C.3E 07:30 → ENRESERV 11:52
PROVIDERS: ADMIT Orthopaedic Surgery Orthopaedic Surgery of the Spine; ATTEND Orthopaedic Surgery Orthopaedic Surgery of the Spine
PROC: 0SG704Z Fusion of Right Sacroiliac Joint with Internal Fixation Device, Open Approach (ICD-10-PCS; principal; 2017-08-09)
PROC: 0SG804Z Fusion of Left Sacroiliac Joint with Internal Fixation Device, Open Approach (ICD-10-PCS; principal; 2017-08-09)
PROC: 0SG1071 Fusion of 2 or more Lumbar Vertebral Joints with Autologous Tissue Substitute, Posterior Approach, Posterior Column, Open Approach (ICD-10-PCS; principal; 2017-08-09)
PROC: 0SG00AJ Fusion of Lumbar Vertebral Joint with Interbody Fusion Device, Posterior Approach, Anterior Column, Open Approach (ICD-10-PCS; principal; 2017-08-09)
PROC: 0SG3071 Fusion of Lumbosacral Joint with Autologous Tissue Substitute, Posterior Approach, Posterior Column, Open Approach (ICD-10-PCS; principal; 2017-08-09)
DX: M48.062 Spinal stenosis, lumbar region with neurogenic claudication (principal); D62 Acute posthemorrhagic anemia; M48.07 Spinal stenosis, lumbosacral region; Z91.041 Radiographic dye allergy status; Z88.8 Allergy status to other drugs, medicaments and biological substances; Z79.84 Long term (current) use of oral hypoglycemic drugs; I35.0 Nonrheumatic aortic (valve) stenosis; N40.0 Benign prostatic hyperplasia without lower urinary tract symptoms; I25.10 Atherosclerotic heart disease of native coronary artery without angina pectoris; I48.2 Chronic atrial fibrillation; N18.3 Chronic kidney disease, stage 3 (moderate); F32.9 Major depressive disorder, single episode, unspecified; E11.21 Type 2 diabetes mellitus with diabetic nephropathy; G47.33 Obstructive sleep apnea (adult) (pediatric); Z87.891 Personal history of nicotine dependence; Z95.1 Presence of aortocoronary bypass graft; J44.9 Chronic obstructive pulmonary disease, unspecified; M1A.9XX0 Chronic gout, unspecified, without tophus (tophi)